=== PATIENT | male | born 1950 | race American Indian/Alaskan Native ===

== ENCOUNTER 2017-12-24 14:41 | Emergency (ER) | payer OTHER, MEDICARE ==
[2017-12-24 15:09] VITALS: BP 196/87
--- NOTE | 2017-12-24 17:32 | Emergency Department Report ---
ED ENT HPI - General Chief complaint: Earache Stated complaint: CANT HEAR Time Seen by Provider: 12/24/17 17:14 Source: patient Mode of arrival: Ambulatory Limitations: No Limitations - History of Present Illness Initial comments: pt has cc of b/l decreased hearing. pt has no visual or speech or gait disturbances. Pt has left ear with more decreased hearing, and " they feel clogged" pt denies h/a and neck pain. Pt drove here. MD complaint: ear pain -: Gradual Location: R ear, L ear Severity: mild Consistency: constant Improves with: pressure, other (decrease in hearing) Context-Epistaxis: other (anticoagulant use) Associated Symptoms: tinnitus, hearing loss. denies: fever, cough, gum swelling , toothache, pain with swallowing, sore throat, discharge from ear, rhinorrhea - Related Data Home Medications Medication Instructions Recorded Confirmed Last Taken Amlodipine-Atorvast 2.5-10 mg 5 - 10 mg PO HS 09/10/17 09/10/17 09/09/17 Apixaban [Eliquis] 2.5 mg PO BID 09/10/17 09/10/17 09/09/17 Aspirin [Aspirin BABY CHEW TAB] 81 mg PO QDAY 09/10/17 09/10/17 09/09/17 Insulin Glargine,Hum.rec.anlog See Protocol SQ HS PRN 09/10/17 09/10/17 09/09/17 [Lantus Solostar] Previous Rx's Medication Instructions Recorded Last Taken Type ALPRAZolam [Xanax TAB] 0.25 mg PO BID PRN #10 tab 09/16/17 Unknown Rx AtorvaSTATin [Lipitor] 40 mg PO QHS #30 tablet 09/16/17 Unknown Rx Carvedilol [Coreg] 12.5 mg PO BID #60 tablet 09/16/17 Unknown Rx ISOSORBIDE MONOnitrate [Imdur ER] 120 mg PO QDAY #30 tablet 09/16/17 Unknown Rx Spironolactone [Aldactone] 25 mg PO QDAY #30 tablet 09/16/17 Unknown Rx amLODIPine [Norvasc] 5 mg PO QDAY #30 tablet 09/16/17 Unknown Rx hydrALAZINE [Apresoline TAB] 100 mg PO Q8HR 30 Days tablet 09/16/17 Unknown Rx Cefdinir 300 mg PO BID 7 Days #14 capsule 12/24/17 Unknown Rx Cipro/Dexameth 0.3/0.1% [Ciprodex 4 drops OT BID 7 Days #1 bottle 12/24/17 Unknown Rx OTIC] Allergies Allergy/AdvReac Type Severity Reaction Status Date / Time No Known Allergies Allergy Unverified 09/09/17 19:32 ED Dental HPI - General Chief complaint: Earache Stated complaint: CANT HEAR Time Seen by Provider: 12/24/17 17:14 Source: patient Mode of arrival: Ambulatory Limitations: No Limitations - History of Present Illness MD complaint: ear pain -: Gradual, days(s) (2) Quality: aching Consistency: constant - Related Data Home Medications Medication Instructions Recorded Confirmed Last Taken Amlodipine-Atorvast 2.5-10 mg 5 - 10 mg PO HS 09/10/17 09/10/17 09/09/17 Apixaban [Eliquis] 2.5 mg PO BID 09/10/17 09/10/17 09/09/17 Aspirin [Aspirin BABY CHEW TAB] 81 mg PO QDAY 09/10/17 09/10/17 09/09/17 Insulin Glargine,Hum.rec.anlog See Protocol SQ HS PRN 09/10/17 09/10/17 09/09/17 [Lantus Solostar] Previous Rx's Medication Instructions Recorded Last Taken Type ALPRAZolam [Xanax TAB] 0.25 mg PO BID PRN #10 tab 09/16/17 Unknown Rx AtorvaSTATin [Lipitor] 40 mg PO QHS #30 tablet 09/16/17 Unknown Rx Carvedilol [Coreg] 12.5 mg PO BID #60 tablet 09/16/17 Unknown Rx ISOSORBIDE MONOnitrate [Imdur ER] 120 mg PO QDAY #30 tablet 09/16/17 Unknown Rx Spironolactone [Aldactone] 25 mg PO QDAY #30 tablet 09/16/17 Unknown Rx amLODIPine [Norvasc] 5 mg PO QDAY #30 tablet 09/16/17 Unknown Rx hydrALAZINE [Apresoline TAB] 100 mg PO Q8HR 30 Days tablet 09/16/17 Unknown Rx Cefdinir 300 mg PO BID 7 Days #14 capsule 12/24/17 Unknown Rx Cipro/Dexameth 0.3/0.1% [Ciprodex 4 drops OT BID 7 Days #1 bottle 12/24/17 Unknown Rx OTIC] Allergies Allergy/AdvReac Type Severity Reaction Status Date / Time No Known Allergies Allergy Unverified 09/09/17 19:32 ED Review of Systems ROS: Stated complaint: CANT HEAR Other details as noted in HPI Constitutional: denies: chills, fever Eyes: denies: eye pain, eye discharge, vision change ENT: ear pain, hearing loss. denies: throat pain Respiratory: denies: cough, shortness of breath, wheezing Cardiovascular: denies: chest pain, palpitations Endocrine: no symptoms reported Gastrointestinal: denies: abdominal pain, nausea, diarrhea Genitourinary: denies: urgency, dysuria Musculoskeletal: denies: back pain, joint swelling, arthralgia Skin: denies: rash, lesions Neurological: denies: headache, weakness, paresthesias Psychiatric: denies: anxiety, depression Hematological/Lymphatic: denies: easy bleeding, easy bruising ED Past Medical Hx - Past Medical History Hx Hypertension: Yes Hx CVA: Yes Hx Heart Attack/AMI: Yes Hx Diabetes: Yes Hx Psychiatric Treatment: Yes (Anxiety) Additional medical history: afib - Surgical History Hx Coronary Stent: Yes - Social History Smoking Status: Never Smoker Substance Use Type: None - Medications Home Medications: Home Medications Medication Instructions Recorded Confirmed Last Taken Type Amlodipine-Atorvast 2.5-10 mg 5 - 10 mg PO HS 09/10/17 09/10/17 09/09/17 History Apixaban [Eliquis] 2.5 mg PO BID 09/10/17 09/10/17 09/09/17 History Aspirin [Aspirin BABY CHEW TAB] 81 mg PO QDAY 09/10/17 09/10/17 09/09/17 History Insulin Glargine,Hum.rec.anlog See Protocol SQ HS PRN 09/10/17 09/10/17 History [Lantus Solostar] ALPRAZolam [Xanax TAB] 0.25 mg PO BID PRN #10 tab 09/16/17 Unknown Rx AtorvaSTATin [Lipitor] 40 mg PO QHS #30 tablet 09/16/17 Unknown Rx Carvedilol [Coreg] 12.5 mg PO BID #60 tablet 09/16/17 Unknown Rx ISOSORBIDE MONOnitrate [Imdur ER] 120 mg PO QDAY #30 tablet 09/16/17 Unknown Rx Spironolactone [Aldactone] 25 mg PO QDAY #30 tablet 09/16/17 Unknown Rx amLODIPine [Norvasc] 5 mg PO QDAY #30 tablet 09/16/17 Unknown Rx hydrALAZINE [Apresoline TAB] 100 mg PO Q8HR 30 Days tablet 09/16/17 Unknown Rx Cefdinir 300 mg PO BID 7 Days #14 capsule 12/24/17 Unknown Rx Cipro/Dexameth 0.3/0.1% [Ciprodex 4 drops OT BID 7 Days #1 bottle 12/24/17 Unknown Rx OTIC] ED Physical Exam - General Limitations: No Limitations General appearance: alert, in no apparent distress - Head Head exam: Present: atraumatic, normocephalic - Eye Eye exam: Present: normal appearance, PERRL, EOMI. Absent: scleral icterus, nystagmus, periorbital swelling, periorbital tenderness Pupils: Present: normal accommodation - ENT ENT exam: Present: normal orophraynx, mucous membranes moist, other (left TM has decreased cone of light with erythema, some external canal sweklling, R tm has blunted cone of light, with slight canal swelling). Absent: TM's normal bilaterally - Neck Neck exam: Present: normal inspection - Respiratory Respiratory exam: Present: normal lung sounds bilaterally. Absent: respiratory distress - Cardiovascular Cardiovascular Exam: Present: regular rate, normal rhythm. Absent: systolic murmur, diastolic murmur, rubs, gallop - GI/Abdominal GI/Abdominal exam: Present: soft, normal bowel sounds - Rectal Rectal exam: Present: deferred - Extremities Exam Extremities exam: Present: normal inspection - Back Exam Back exam: Present: normal inspection - Neurological Exam Neurological exam: Present: alert, altered, oriented X3, CN II-XII intact, normal gait, motor sensory deficit, reflexes normal (nih=0). Absent: abnormal gait - Psychiatric Psychiatric exam: Present: normal affect, normal mood - Skin Skin exam: Present: warm, dry, intact, normal color. Absent: rash ED Course Vital Signs 12/24/17 15:05 Temperature 98.7 F Pulse Rate 69 Respiratory 16 Rate Blood Pressure 196/87 O2 Sat by Pulse 95 Oximetry ED Medical Decision Making - Lab Data Result diagrams: 12/24/17 18:26 - Radiology Data Radiology results: report reviewed (l and r maxillary sinusitis, no acute cva intracranial bleed, or brain mass, b/l opacification of mastoid air cells, and middle ear cavities with fluid levels in mastoid sinus b/l ) - Medical Decision Making pt given rochepin here, and rx for cefnidir. Pt agrees to see ent Critical Care Time: No Critical care attestation.: If time is entered above; I have spent that time in minutes in the direct care of this critically ill patient, excluding procedure time. ED Disposition Clinical Impression: Mastoid disorder Otitis media Qualifiers: Otitis media type: unspecified Laterality: bilateral Qualified Code(s): H66.93 - Otitis media, unspecified, bilateral Disposition: TO HOME OR SELFCARE Is pt being admited?: No Does the pt Need Aspirin: No Condition: Stable Additional Instructions: You must, without fail, arrange an evaluation with your primary doctor, and ear nose and throat doctor, and a neurologist . Visit your primary doctor on Tuesday. Prescriptions: Cefdinir 300 mg PO BID 7 Days #14 capsule Cipro/Dexameth 0.3/0.1% [Ciprodex OTIC] 4 drops OT BID 7 Days #1 bottle Referrals: LINCOLN JONES MD [Primary Care Provider] - 3-5 Days
--- NOTE | 2017-12-24 18:21 | Cat Scan Report ---
FINAL REPORT EXAM: CT HEAD/BRAIN WO CON HISTORY: acute eharing loss on anticoagulants TECHNIQUE: CT examination of the head without IV contrast PRIORS: None. FINDINGS: Moderate left and slight right maxillary sinus mucosal thickening. The other paranasal sinuses are clear. Multifocal air cell opacification in the mastoid sinus bilaterally with scattered fluid levels. Complete opacification of the middle ear cavity bilaterally. Atherosclerotic calcification in the basilar artery and both carotid siphons. Bone windows demonstrate no acute fracture. There is ventricular and sulcal prominence compatible with global cerebrocortical atrophy. The brain contains no mass, mass effect, hemorrhage, or acute infarct. There is no extra-axial intracranial bleed, brain bleed, or midline shift. IMPRESSION: No acute CVA, intracranial bleed, or brain mass Bilateral opacification of the mastoid air cells and middle ear cavities with fluid levels in the mastoid sinus bilaterally. This may reflect eustachian tube dysfunction. The differential includes bilateral acute otomastoiditis Cerebrovascular atherosclerosis
[2017-12-24 18:51] LABS: Basophils # (Auto) 0.1 K/mm3 (0.0-0.1); Basophils % (Auto) 0.7 % (0.0-1.8); Eosinophils # (Auto) 0.1 K/mm3 (0.0-0.4); Eosinophils % (Auto) 0.6 % (0.0-4.3); Hematocrit 31.1 % (35.5-45.6); Hemoglobin 10.1 gm/dl (11.8-15.2); Lymphocytes # (Auto) 1.6 K/mm3 (1.2-5.4); Lymphocytes % (Auto) 11.2 % (13.4-35.0); Mean Corpuscular HGB Conc 32 % (32-34); Mean Corpuscular Volume 73 fl (84-94); Monocytes # (Auto) 1.1 K/mm3 (0.0-0.8); Monocytes % (Auto) 7.8 % (0.0-7.3); Platelet Count 518 K/mm3 (140-440); Red Blood Count 4.26 M/mm3 (3.65-5.03); Red Cell Distribution Width 16.5 % (13.2-15.2)
[2017-12-24] MEDS ORDERED: XYLOCAINE 1% MPF 5 mL INFILTRATI ONE (19:00)
[2017-12-24] MEDS ORDERED: ROCEPHIN IM ONE (19:00)
[2017-12-24 19:04] LABS: Mean Corpuscular Hemoglobin 24 pg (28-32)
[2017-12-24 19:07] LABS: Albumin 3.7 g/dL (3.9-5); Calcium 9.1 mg/dL (8.4-10.2)
== END 2017-12-24 19:50 | disposition home or self-care (01) ==
LOC: ED 14:41
DX: H70.93 Unspecified mastoiditis, bilateral (principal); I10 Essential (primary) hypertension; E11.9 Type 2 diabetes mellitus without complications; F41.9 Anxiety disorder, unspecified; I48.91 Unspecified atrial fibrillation; Z95.1 Presence of aortocoronary bypass graft; Z79.82 Long term (current) use of aspirin; Z79.4 Long term (current) use of insulin
CPT/HCPCS: 36415; 70450; 80053; 85025; 96372; 99284; J0696

== ENCOUNTER 2018-01-30 17:19 | Inpatient (IN) | payer OTHER, MEDICARE ==
[2018-01-30 18:23] LABS: Calcium 8.7 mg/dL (8.4-10.2)
--- NOTE | 2018-01-30 18:24 | Emergency Department Report ---
ED Shortness of Breath HPI - General Chief Complaint: Dyspnea/Respdistress Stated Complaint: CHF/COURTNEY Time Seen by Provider: 01/30/18 18:23 Source: patient, EMS Mode of arrival: Stretcher Limitations: No Limitations - History of Present Illness Initial Comments: Patient states he has been having shortness of breath for the past few days. When EMS picked him up he was severely short of breath with his O2 sat in the 80 's. He was given breathing treatment, aspirin 325 mg and nitroglycerin sublingual by EMS prior to arrival in the emergency room. MD Complaint: shortness of breath -: Gradual Severity: severe Pain Scale: 9 Consistency: constant Improves With: nothing Worsens With: nothing Known History Of: congestive heart failure Treatments Prior to Arrival: bronchodilator, asprin, nitroglycerin, diuretics - Related Data Home Oxygen Therapy: No Home Medications Medication Instructions Recorded Confirmed Last Taken Apixaban [Eliquis] 5 mg PO BID 09/10/17 01/30/18 09/09/17 Aspirin [Aspirin BABY CHEW TAB] 81 mg PO QDAY 09/10/17 01/30/18 09/09/17 Insulin Glargine,Hum.rec.anlog See Protocol SQ HS PRN 09/10/17 01/30/18 09/09/17 [Lantus Solostar] Cholecalciferol Vit D3 [Vitamin D3] 1,000 unit PO QDAY 01/30/18 01/30/18 Unknown Clopidogrel [Plavix] 75 mg PO QDAY 01/30/18 01/30/18 Unknown Torsemide [Demadex] 10 mg PO QDAY 01/30/18 01/30/18 Unknown Previous Rx's Medication Instructions Recorded Last Taken Type ALPRAZolam [Xanax TAB] 0.25 mg PO BID PRN #10 tab 09/16/17 Unknown Rx AtorvaSTATin [Lipitor] 40 mg PO QHS #30 tablet 09/16/17 Unknown Rx Carvedilol [Coreg] 12.5 mg PO BID #60 tablet 09/16/17 Unknown Rx ISOSORBIDE MONOnitrate [Imdur ER] 120 mg PO QDAY #30 tablet 09/16/17 Unknown Rx Spironolactone [Aldactone] 25 mg PO QDAY #30 tablet 09/16/17 Unknown Rx amLODIPine [Norvasc] 5 mg PO QDAY #30 tablet 09/16/17 Unknown Rx hydrALAZINE [Apresoline TAB] 100 mg PO Q8HR 30 Days tablet 09/16/17 Unknown Rx Allergies Allergy/AdvReac Type Severity Reaction Status Date / Time No Known Allergies Allergy Unverified 09/09/17 19:32 ED Review of Systems ROS: Stated complaint: CHF/COURTNEY Other details as noted in HPI Comment: All other systems reviewed and negative Constitutional: denies: chills, fever Eyes: denies: vision change ENT: denies: ear pain, dental pain Respiratory: orthopnea, shortness of breath, SOB with exertion, SOB at rest Cardiovascular: denies: chest pain, palpitations Endocrine: no symptoms reported Gastrointestinal: denies: abdominal pain, nausea, vomiting, diarrhea Genitourinary: denies: urgency, dysuria, frequency Musculoskeletal: denies: back pain, joint swelling Skin: denies: rash, change in color Neurological: denies: headache, weakness, numbness Psychiatric: denies: anxiety, depression Hematological/Lymphatic: denies: easy bleeding, easy bruising ED Past Medical Hx - Past Medical History Hx Hypertension: Yes Hx CVA: Yes Hx Heart Attack/AMI: Yes Hx Congestive Heart Failure: Yes Hx Diabetes: Yes Hx Psychiatric Treatment: Yes (Anxiety) Additional medical history: afib - Surgical History Hx Coronary Stent: Yes Hx Open Heart Surgery: Yes (CABG x3) - Social History Smoking Status: Never Smoker Substance Use Type: None - Medications Home Medications: Home Medications Medication Instructions Recorded Confirmed Last Taken Type Apixaban [Eliquis] 5 mg PO BID 09/10/17 01/30/18 09/09/17 History Aspirin [Aspirin BABY CHEW TAB] 81 mg PO QDAY 09/10/17 01/30/18 09/09/17 History Insulin Glargine,Hum.rec.anlog See Protocol SQ HS PRN 09/10/17 01/30/18 History [Lantus Solostar] ALPRAZolam [Xanax TAB] 0.25 mg PO BID PRN #10 tab 09/16/17 01/30/18 Unknown Rx AtorvaSTATin [Lipitor] 40 mg PO QHS #30 tablet 09/16/17 01/30/18 Unknown Rx Carvedilol [Coreg] 12.5 mg PO BID #60 tablet 09/16/17 01/30/18 Unknown Rx ISOSORBIDE MONOnitrate [Imdur ER] 120 mg PO QDAY #30 tablet 09/16/17 01/30/18 Unknown Rx Spironolactone [Aldactone] 25 mg PO QDAY #30 tablet 09/16/17 01/30/18 Unknown Rx amLODIPine [Norvasc] 5 mg PO QDAY #30 tablet 09/16/17 01/30/18 Unknown Rx hydrALAZINE [Apresoline TAB] 100 mg PO Q8HR 30 Days tablet 09/16/17 01/30/18 Unknown Rx Cholecalciferol Vit D3 [Vitamin D3] 1,000 unit PO QDAY 01/30/18 01/30/18 Unknown History Clopidogrel [Plavix] 75 mg PO QDAY 01/30/18 01/30/18 Unknown History Torsemide [Demadex] 10 mg PO QDAY 01/30/18 01/30/18 Unknown History ED Physical Exam - General Limitations: No Limitations General appearance: alert, in distress - Head Head exam: Present: atraumatic, normocephalic, normal inspection - Eye Eye exam: Present: normal appearance, PERRL, EOMI Pupils: Present: normal accommodation - ENT ENT exam: Present: normal exam, normal orophraynx, mucous membranes moist - Neck Neck exam: Present: normal inspection, tenderness, full ROM. Absent: meningismus - Respiratory Respiratory exam: Present: respiratory distress, rales, rhonchi, decreased breath sounds - Cardiovascular Cardiovascular Exam: Present: regular rate, normal rhythm, S3 - GI/Abdominal GI/Abdominal exam: Present: soft. Absent: distended, tenderness, guarding, rebound, normal bowel sounds - Extremities Exam Extremities exam: Present: normal inspection, full ROM, normal capillary refill , pedal edema - Back Exam Back exam: Present: normal inspection, full ROM. Absent: tenderness - Neurological Exam Neurological exam: Present: alert, oriented X3, CN II-XII intact - Psychiatric Psychiatric exam: Present: normal affect, normal mood - Skin Skin exam: Present: warm, dry, intact. Absent: rash ED Course Vital Signs 01/30/18 01/30/18 01/30/18 17:23 17:30 17:57 Temperature Pulse Rate 83 80 Respiratory 28 H 19 20 Rate Blood Pressure 181/102 215/100 O2 Sat by Pulse 97 97 96 Oximetry 01/30/18 01/30/18 01/30/18 18:01 18:30 19:00 Temperature Pulse Rate 77 78 77 Respiratory 19 20 18 Rate Blood Pressure 198/91 216/105 227/120 O2 Sat by Pulse 96 98 96 Oximetry 01/30/18 01/30/18 01/30/18 19:01 19:30 20:16 Temperature Pulse Rate 78 78 83 Respiratory 16 24 Rate Blood Pressure 227/120 217/117 194/81 O2 Sat by Pulse 96 96 Oximetry 01/30/18 01/30/18 01/30/18 20:45 20:53 21:01 Temperature Pulse Rate 76 75 75 Respiratory 27 H 28 H 24 Rate Blood Pressure 192/105 192/105 185/94 O2 Sat by Pulse 97 97 96 Oximetry 01/30/18 01/30/18 01/30/18 21:05 21:19 21:30 Temperature 98.3 F Pulse Rate 81 Respiratory 17 18 Rate Blood Pressure 185/94 219/103 O2 Sat by Pulse 97 Oximetry - Reevaluation(s) Reevaluation #1: 01/31/18 02:50 I discussed patient with the hospitalist on-call Dr. Murphy. He will admit patient to the hospital for further evaluation and management. ED Medical Decision Making - Lab Data Result diagrams: 01/30/18 19:18 01/30/18 17:52 - Radiology Data Radiology results: report reviewed, image reviewed - Medical Decision Making Acute exacerbation of congestive heart failure. Shortness of breath. Critical Care Time: Yes Critical care time in (mins) excluding proc time.: 45 Critical care attestation.: If time is entered above; I have spent that time in minutes in the direct care of this critically ill patient, excluding procedure time. ED Disposition Clinical Impression: Shortness of breath on exertion Acute exacerbation of CHF (congestive heart failure) Qualifiers: Heart failure type: unspecified Qualified Code(s): I50.9 - Heart failure, unspecified Hypertension Qualifiers: Hypertension type: unspecified Qualified Code(s): I10 - Essential (primary) hypertension Disposition: OP ADMIT IP TO THIS HOSP Is pt being admited?: Yes Does the pt Need Aspirin: Yes Condition: Stable
[2018-01-30] MEDS ORDERED: LASIX ONE (18:37)
[2018-01-30] MEDS ORDERED: LASIX IV ONE (18:38)
[2018-01-30] MEDS ORDERED: NITRO-BID 2% TP ONE (18:40)
[2018-01-30 18:51] LABS: Chol/HDL Ratio 1.93 %
--- NOTE | 2018-01-30 19:20 | History and Physical Report ---
History of Present Illness Chief complaint: Im swollen, and im short of breath History of present illness: 67 YO Male with DM,HTN, CVA, OR, CHF, DM,Atrial Fib, CAD S/P CABG, Anxiety presents to ED for evaluation. Pt states that he has experienced shortness of breath and leg swelling for the past 2 weeks with worsening symptoms over the past 3 days. Pt acknowledges orthopnea, PND, Decreased exercise tolerance, subjective weight gain as well as dietary noncompliance. Pt denies fever, chills , CP, Palpitations, Syncope, BRBPR, medication noncompliance, trauma, productive cough, or recent ill contacts. Pt seen and evaluated in ED and found to have CHF Decompensation complicated by Acute Respiratory Failure, and Acute Renal Failure. Pt admitted to telemetry and treated IAW CHF protocol. Cardiology consulted in ED. Past History Past Medical History: atrial fib, CAD, diabetes, heart failure, hypertension, hyperlipidemia Past Surgical History: CABG Social history: single. denies: smoking, alcohol abuse, prescription drug abuse Family history: hypertension Medications and Allergies Allergies Allergy/AdvReac Type Severity Reaction Status Date / Time No Known Allergies Allergy Unverified 09/09/17 19:32 Home Medications Medication Instructions Recorded Confirmed Last Taken Type Apixaban [Eliquis] 5 mg PO BID 09/10/17 01/30/18 09/09/17 History Aspirin [Aspirin BABY CHEW TAB] 81 mg PO QDAY 09/10/17 01/30/18 09/09/17 History Insulin Glargine,Hum.rec.anlog See Protocol SQ HS PRN 09/10/17 01/30/18 History [Lantus Solostar] ALPRAZolam [Xanax TAB] 0.25 mg PO BID PRN #10 tab 09/16/17 01/30/18 Unknown Rx AtorvaSTATin [Lipitor] 40 mg PO QHS #30 tablet 09/16/17 01/30/18 Unknown Rx Carvedilol [Coreg] 12.5 mg PO BID #60 tablet 09/16/17 01/30/18 Unknown Rx ISOSORBIDE MONOnitrate [Imdur ER] 120 mg PO QDAY #30 tablet 09/16/17 01/30/18 Unknown Rx Spironolactone [Aldactone] 25 mg PO QDAY #30 tablet 09/16/17 01/30/18 Unknown Rx amLODIPine [Norvasc] 5 mg PO QDAY #30 tablet 09/16/17 01/30/18 Unknown Rx hydrALAZINE [Apresoline TAB] 100 mg PO Q8HR 30 Days tablet 09/16/17 01/30/18 Unknown Rx Cholecalciferol Vit D3 [Vitamin D3] 1,000 unit PO QDAY 01/30/18 01/30/18 Unknown History Clopidogrel [Plavix] 75 mg PO QDAY 01/30/18 01/30/18 Unknown History Torsemide [Demadex] 10 mg PO QDAY 01/30/18 01/30/18 Unknown History Review of Systems Constitutional: no weight loss, no weight gain, no fever, no chills Ears, nose, mouth and throat: no ear pain, no ear discharge, no tinnitis, no decreased hearing, no nose pain Cardiovascular: orthopnea, shortness of breath, dyspnea on exertion, paroxysmal nocturnal dyspnea, decreased exercise tolerance, no chest pain, no palpitations , no rapid/irregular heart beat, no edema, no syncope Respiratory: no cough, no cough with sputum, no excessive sputum, no hemoptysis Gastrointestinal: no abdominal pain, no nausea, no vomiting, no diarrhea, no constipation, no change in bowel habits, no hematemesis Genitourinary Male: no dysuria, no hematuria, no flank pain, no discharge, no urinary frequency, no urinary hesitancy, no nocturia, no incontinence, no erectile dysfunction Rectal: no pain, no incontinence, no bleeding Musculoskeletal: no neck stiffness, no neck pain, no shooting arm pain, no arm numbness/tingling, no low back pain, no shooting leg pain Integumentary: no rash, no pruritis, no redness, no sores, no wounds, no jaundice, no boils Neurological: no head injury, no transient paralysis, no paralysis, no weakness , no parathesias, no numbness, no tingling, no seizures Psychiatric: no anxiety, no memory loss, no change in sleep habits, no sleep disturbances, no insomnia, no hypersomnia, no change in appetite Endocrine: no cold intolerance, no heat intolerance, no polyphagia, no excessive thirst, no polydipsia, no polyuria, no nocturia, no excessive sweating Hematologic/Lymphatic: no easy bruising, no easy bleeding, no lymphadenopathy, no lymphedema Allergic/Immunologic: no urticaria, no allergic rhinitis, no wheezing, no persistent infections, no anaphylaxis Exam - Constitutional Vitals: Temp Pulse Resp BP Pulse Ox 78 20 227/120 96 01/30/18 19:01 01/30/18 17:57 01/30/18 19:01 01/30/18 17:57 General appearance: Present: mild distress - EENT Eyes: Present: PERRL ENT: hearing intact, clear oral mucosa - Neck Neck: Present: supple, masses or JVD - Respiratory Respiratory effort: labored Respiratory: bilateral: diminished, rhonchi - Cardiovascular Heart Sounds: Present: S1 & S2. Absent: rub, click - Extremities Extremity abnormal: edema Peripheral Pulses: within normal limits - Abdominal General gastrointestinal: Present: soft, non-tender, non-distended, normal bowel sounds Male genitourinary: Present: normal - Integumentary Integumentary: Present: clear, warm, dry - Musculoskeletal Musculoskeletal: gait normal, strength equal bilaterally - Psychiatric Psychiatric: appropriate mood/affect, intact judgment & insight - Neurologic Neurologic: CNII-XII intact, moves all extremities Results - Labs CBC & Chem 7: 01/30/18 19:18 01/30/18 17:52 Labs: Abnormal lab results 01/30/18 Range/Units 17:52 BUN 38 H (9-20) mg/dL Creatinine 2.8 H (0.8-1.5) mg/dL Glucose 145 H (75-100) mg/dL Troponin T 0.073 H (0.00-0.029) ng/mL HDL Cholesterol 77 H (40-59) mg/dL Assessment and Plan - Patient Problems (1) Atrial fibrillation Current Visit: Yes Status: Acute Qualifiers: Atrial fibrillation type: persistent Qualified Code(s): I48.1 - Persistent atrial fibrillation Plan to address problem: Therapeutic anticoagulation, admit to telemetry, rate currently controlled. (2) Respiratory failure Current Visit: Yes Status: Acute Qualifiers: Chronicity: acute Respiratory failure complication: hypoxia Qualified Code(s): J96.01 - Acute respiratory failure with hypoxia Plan to address problem: supplemental oxygen, nebulizer therapy, monitor uop q shift, Chest x ray, NIPPV as clinically indicated. (3) Acute exacerbation of CHF (congestive heart failure) Current Visit: No Status: Acute Qualifiers: Heart failure type: unspecified Qualified Code(s): I50.9 - Heart failure, unspecified Plan to address problem: Admit to telemetry, diureisis, monitor uop q shift, strict I/O, daily weight, Chest X ray, supplemental oxygen, nebulizer therapy, pulse oximetry. (4) Diabetes Current Visit: Yes Status: Acute Plan to address problem: ADA diet, insulin, accu check (5) Accelerated hypertension Current Visit: Yes Status: Acute Plan to address problem: monitor bp q shift, resume prehospital medication, IV hydralazine prn (6) DVT prophylaxis Current Visit: Yes Status: Acute Plan to address problem: SCD to BLE while in bed
[2018-01-30] MEDS ORDERED: SODIUM CHLORIDE FLUSH SYRINGE 10 ML IV PRN (19:48)
[2018-01-30] MEDS ORDERED: PROVENTIL IH PRN (19:48)
[2018-01-30] MEDS ORDERED: ZOFRAN IV PRN (19:48)
[2018-01-30 20:00] LABS: Basophils # (Auto) 0.1 K/mm3 (0.0-0.1); Basophils % (Auto) 0.5 % (0.0-1.8); Eosinophils % (Auto) 0.2 % (0.0-4.3); Hematocrit 33.5 % (35.5-45.6); Hemoglobin 10.7 gm/dl (11.8-15.2); Lymphocytes # (Auto) 0.6 K/mm3 (1.2-5.4); Lymphocytes % (Auto) 6.1 % (13.4-35.0); Mean Corpuscular HGB Conc 32 % (32-34); Mean Corpuscular Volume 81 fl (84-94); Monocytes # (Auto) 0.8 K/mm3 (0.0-0.8); Monocytes % (Auto) 7.6 % (0.0-7.3); Platelet Count 351 K/mm3 (140-440); Red Blood Count 4.13 M/mm3 (3.65-5.03)
[2018-01-30 20:02] LABS: Mean Corpuscular Hemoglobin 26 pg (28-32); Red Cell Distribution Width 21.8 % (13.2-15.2)
--- NOTE | 2018-01-30 20:48 | XRay Report ---
FINAL REPORT PROCEDURE: XR CHEST 1V AP TECHNIQUE: Chest radiograph anteroposterior view. CPT 08216 HISTORY: Shortness of breath COMPARISON: 09/09/2017 FINDINGS: Heart: Prominent cardiac silhouette Mediastinum/Vessels: Prominent central vessels. Lungs/Pleural space: There are extensive bilateral patchy airspace opacities, which may be related to edema. There are likely bilateral pleural effusions. No pneumothorax is seen. Bony thorax: No acute osseous abnormality. Life support devices: None. IMPRESSION: Findings are compatible with congestive heart failure with pulmonary edema. Correlate clinically to exclude underlying infectious process
[2018-01-30] MEDS: APRESOLINE IV PRN (21:58)
[2018-01-30] MEDS: APRESOLINE PO SCH (21:58)
[2018-01-30] MEDS: ELIQUIS PO SCH (22:00)
[2018-01-30] MEDS: COREG PO SCH (22:00)
[2018-01-30] MEDS: SODIUM CHLORIDE FLUSH SYRINGE 10 ML IV SCH (22:01)
[2018-01-31] MEDS: APRESOLINE IV PRN (01:59)
[2018-01-31] MEDS: LASIX IV SCH ×2 (05:15→18:15)
[2018-01-31] MEDS: APRESOLINE PO SCH ×3 (05:15→22:55)
[2018-01-31 06:25] LABS: Calcium 8.6 mg/dL (8.4-10.2)
[2018-01-31] MEDS: DEMADEX PO SCH (09:41)
[2018-01-31] MEDS: NORVASC PO SCH (09:41)
[2018-01-31] MEDS: ALDACTONE PO SCH (09:41)
[2018-01-31] MEDS: ELIQUIS PO SCH ×2 (09:42→22:55)
[2018-01-31] MEDS: PLAVIX PO SCH (09:42)
[2018-01-31] MEDS: VITAMIN D3 PO SCH (09:42)
[2018-01-31] MEDS: IMDUR PO SCH (09:42)
[2018-01-31] MEDS: BABY ASPIRIN PO SCH (09:42)
[2018-01-31] MEDS: SODIUM CHLORIDE FLUSH SYRINGE 10 ML IV SCH ×2 (09:43→22:55)
[2018-01-31] MEDS: HumaLOG SUB-Q SCH ×4 (09:43→22:55)
[2018-01-31] MEDS: COREG PO SCH ×2 (09:43→22:55)
--- NOTE | 2018-01-31 12:24 | Consultation ---
History of Present Illness Consult date: 01/31/18 Requesting physician: EDMAR SALAS Consult reason: congestive heart failure History of present illness: Pt is a 67 YO male with a past medical history significant for CAD s/p CABG in 2010, paroxysmal atrial fibrillation, anticoagulated with Eliquis, diastolic heart failure, HTN, DM, CKD, HLP, PVD. He is followed in our office by Dr. Edwards. He presented with complaints of SOB since yesterday and BLE swelling for the past 2 weeks. He reports that he was outside yesterday when he developed SOB and thought that he got overheated and his neighbor called EMS. He denies any chest pain, palpitations, n/v, diaphoresis, dizziness or syncope. He reports compliance with his home medication regimen and diet. BP on arrival 215/100. CXR shows pulmonary edema. Pro-BNP 9307. C 01/2017 showed Left main patent LAD proximal 30% mid 100% patent MARTINEZ to diagonal with retrograde fill into small LAD. Ramus medium caliber vessel patent feeds to anterior lateral portion of the heart. Circumflex 100% weight OM1 50% RCA 100%. With SVG to PDA patent feeding the PDA and PLV. SVG to obtuse marginal was 100% EF 55% mild inferior apical hypokinesis. Echo done 08/2017 showed EF 55-60%, mod to severe LVH, restrictive diastolic filling pattern. Past History Past Medical History: atrial fib, CAD, diabetes, heart failure, hypertension, hyperlipidemia, other (CKD; PVD) Past Surgical History: CABG Social history: single. denies: smoking, alcohol abuse, prescription drug abuse Family history: hypertension Medications and Allergies Allergies Allergy/AdvReac Type Severity Reaction Status Date / Time No Known Allergies Allergy Unverified 09/09/17 19:32 Home Medications Medication Instructions Recorded Confirmed Last Taken Type Apixaban [Eliquis] 5 mg PO BID 09/10/17 01/30/18 09/09/17 History Aspirin [Aspirin BABY CHEW TAB] 81 mg PO QDAY 09/10/17 01/30/18 09/09/17 History Insulin Glargine,Hum.rec.anlog See Protocol SQ HS PRN 09/10/17 01/30/18 History [Lantus Solostar] ALPRAZolam [Xanax TAB] 0.25 mg PO BID PRN #10 tab 09/16/17 01/30/18 Unknown Rx AtorvaSTATin [Lipitor] 40 mg PO QHS #30 tablet 09/16/17 01/30/18 Unknown Rx Carvedilol [Coreg] 12.5 mg PO BID #60 tablet 09/16/17 01/30/18 Unknown Rx ISOSORBIDE MONOnitrate [Imdur ER] 120 mg PO QDAY #30 tablet 09/16/17 01/30/18 Unknown Rx Spironolactone [Aldactone] 25 mg PO QDAY #30 tablet 09/16/17 01/30/18 Unknown Rx amLODIPine [Norvasc] 5 mg PO QDAY #30 tablet 09/16/17 01/30/18 Unknown Rx hydrALAZINE [Apresoline TAB] 100 mg PO Q8HR 30 Days tablet 09/16/17 01/30/18 Unknown Rx Cholecalciferol Vit D3 [Vitamin D3] 1,000 unit PO QDAY 01/30/18 01/30/18 Unknown History Clopidogrel [Plavix] 75 mg PO QDAY 01/30/18 01/30/18 Unknown History Torsemide [Demadex] 10 mg PO QDAY 01/30/18 01/30/18 Unknown History Active Meds: Active Medications Acetaminophen (Tylenol) 650 mg PO Q4H PRN PRN Reason: Pain MILD(1-3)/Fever >100.5/[place] Albuterol (Proventil) 2.5 mg IH Q4HRT PRN PRN Reason: Shortness Of Breath Alprazolam (Xanax) 0.25 mg PO BID PRN PRN Reason: Anxiety Amlodipine Besylate (Norvasc) 5 mg PO QDAY [facility] Last Admin: 01/31/18 09:41 Dose: 5 mg Apixaban (Eliquis) 5 mg PO BID [facility]; Protocol Last Admin: 01/31/18 09:42 Dose: 5 mg Aspirin (Baby Aspirin) 81 mg PO QDAY [facility] Last Admin: 01/31/18 09:42 Dose: 81 mg Atorvastatin Calcium (Lipitor) 40 mg PO QHS [facility] Last Admin: 01/30/18 21:59 Dose: 40 mg Carvedilol (Coreg) 12.5 mg PO BID [facility] Last Admin: 01/31/18 09:43 Dose: 12.5 mg Cholecalciferol (Vitamin D3) 1,000 unit PO QDAY [facility] Last Admin: 01/31/18 09:42 Dose: 1,000 unit Clopidogrel Bisulfate (Plavix) 75 mg PO QDAY [facility] Last Admin: 01/31/18 09:42 Dose: 75 mg Furosemide (Lasix) 40 mg IV BID@0600,1800 [facility] Last Admin: 01/31/18 05:15 Dose: 40 mg Hydralazine HCl (Apresoline) 100 mg PO Q8HR [facility] Last Admin: 01/31/18 05:15 Dose: 100 mg Hydralazine HCl (Apresoline) 20 mg IV Q4HR PRN PRN Reason: Hypertension Last Admin: 01/31/18 01:59 Dose: 20 mg Insulin Human Lispro (Humalog) 0 unit SUB-Q [facility]; Protocol Last Admin: 01/31/18 09:43 Dose: Not Given Isosorbide Mononitrate (Imdur) 120 mg PO QDAY [facility] Last Admin: 01/31/18 09:42 Dose: 120 mg Ondansetron HCl (Zofran) 4 mg IV Q8H PRN PRN Reason: Nausea And Vomiting Sodium Chloride (Sodium Chloride Flush Syringe 10 Ml) 10 ml IV BID [facility] Last Admin: 01/31/18 09:43 Dose: 10 ml Sodium Chloride (Sodium Chloride Flush Syringe 10 Ml) 10 ml IV PRN PRN PRN Reason: LINE FLUSH Spironolactone (Aldactone) 25 mg PO QDAY [facility] Last Admin: 01/31/18 09:41 Dose: 25 mg Torsemide (Demadex) 10 mg PO QDAY [facility] Last Admin: 01/31/18 09:41 Dose: 10 mg Review of Systems Constitutional: no fever, no chills, no sweats Ears, nose, mouth and throat: no ear pain, no nose pain, no sinus pressure, no sinus pain Cardiovascular: edema, shortness of breath, dyspnea on exertion, high blood pressure, leg edema, no chest pain, no palpitations, no rapid/irregular heart beat, no syncope, no lightheadedness Respiratory: shortness of breath, dyspnea on exertion, no cough, no congestion, no wheezing, no pain on inspiration Gastrointestinal: no abdominal pain, no nausea, no vomiting, no diarrhea, no constipation, no change in bowel habits Genitourinary Male: no dysuria, no hematuria, no flank pain, no discharge, no urinary frequency, no urinary hesitancy Musculoskeletal: no neck stiffness, no neck pain, no shooting arm pain, no arm numbness/tingling, no low back pain, no shooting leg pain, no leg numbness/ tingling, no redness of joints Integumentary: no rash, no pruritis, no redness, no sores, no wounds Neurological: no head injury, no paralysis, no weakness, no parathesias, no numbness, no tingling, no seizures, no syncope Psychiatric: no anxiety Endocrine: no cold intolerance, no heat intolerance Hematologic/Lymphatic: no easy bruising, no easy bleeding, no lymphadenopathy Allergic/Immunologic: no urticaria, no wheezing, no persistent infections Physical Examination Vital Signs Pulse Resp BP Pulse Ox 83 28 H 181/102 97 01/30/18 17:23 01/30/18 17:23 01/30/18 17:23 01/30/18 17:23 General appearance: no acute distress HEENT: Positive: PERRL, Normocephaly, Mucus Membranes Moist Neck: Positive: neck supple, trachea midline Cardiac: Positive: Reg Rate and Rhythm, S1/S2, Systolic Murmur Lungs: Positive: Decreased Breath Sounds, Rales (bibasilar) Neuro: Positive: Grossly Intact Abdomen: Positive: Soft. Negative: Tender Skin: Positive: Clear. Negative: Rash, Wound Musculoskeletal: No Pain, Normal Range of Motion Extremities: Present: +2 Edema (BLE) Results 01/30/18 19:18 01/31/18 05:07 Lipids 01/30/18 Range/Units 17:52 Triglycerides 70 (2-149) mg/dL Cholesterol 149 (50-199) mg/dL HDL Cholesterol 77 H (40-59) mg/dL Cholesterol/HDL Ratio 1.93 % CBC 01/30/18 Range/Units 19:18 WBC 10.2 (4.5-11.0) K/mm3 RBC 4.13 (3.65-5.03) M/mm3 Hgb 10.7 L (11.8-15.2) gm/dl Hct 33.5 L (35.5-45.6) % Plt Count 351 (140-440) K/mm3 Lymph # 0.6 L (1.2-5.4) K/mm3 [place] # 0.8 (0.0-0.8) K/mm3 Eos # 0.0 (0.0-0.4) K/mm3 Baso # 0.1 (0.0-0.1) K/mm3 Comprehensive Metabolic Panel 01/30/18 01/31/18 Range/Units 17:52 05:07 Sodium 139 139 (137-145) mmol/L Potassium 4.0 3.6 (3.6-5.0) mmol/L Chloride 103.3 102.6 (98-107) mmol/L Carbon Dioxide 23 23 (22-30) mmol/L BUN 38 H 38 H (9-20) mg/dL Creatinine 2.8 H 2.8 H (0.8-1.5) mg/dL Glucose 145 H 112 H (75-100) mg/dL Calcium 8.7 8.6 (8.4-10.2) mg/dL - Imaging and Cardiology Echo: report reviewed ( 08/2017 showed EF 55-60%, mod to severe LVH, restrictive diastolic filling pattern. ) Cardiac cath: report reviewed (01/2017 showed Left main patent LAD proximal 30% mid 100% patent MARTINEZ to diagonal with retrograde fill into small LAD. Ramus medium caliber vessel patent feeds to anterior lateral portion of the heart. Circumflex 100% weight OM1 50% RCA 100%. With SVG to PDA patent feeding the PDA and PLV. SVG to obtuse marginal was 100% EF 55% mild inferior apical hypokinesis.) EKG: report reviewed, image reviewed EKG interpretations - Telemetry EKG Rhythm: Sinus Rhythm - EKG Sinus rhythms and dysrhythmias: sinus rhythm Chamber hypertrophy or enlargement: left ventricular hypertro Assessment and Plan Assessment: Acute diastolic heart failure / pulmonary edema Hypertensive urgency CAD s/p CABG in 2010 Paroxysmal atrial fibrillation, anticoagulated with Eliquis DM CKD HLP PVD Plan: Agree with present cardiac regimen. Monitor renal indices closely. Assessment and plan reviewed with pt at bedside. The patient has been seen in conjunction with Dr. Otoole who agrees with the assessment and plan of care.
--- NOTE | 2018-01-31 17:36 | Progress Note ---
Assessment and Plan Assessment and plan: Acute on chronic diastolic CHF. lasix iv, Coreg Cardiology following CAD s/p CABG. On Aspirin, Plavix, Coreg, Lipitor, Imdur Diabetes mellitus type 2. Fingerstick qac and HS paroxysmal atrial fib. On Eliquis for anticoagulation Hypertensive urgency. BP improving Hyperlipidemia Chronic kidney disease. recheck Cr in am may consult Nephrology if Cr worsens DVT prophylaxis. On Eliquis Full code status Cramping of hand. Will check Phos, Mag History Interval history: Shortness of breath Swollen legs No chest pain Hospitalist Physical - Physical exam Narrative exam: General: Not in acute distress, Obese, HEENT:Normocephalic, atraumatic Neck:supple,no JVD Lungs: Clear to auscultation bilaterally, no crackles, no wheeze Heart:S1 and S2 regular, no murmurs, rubs or gallop Abd: soft, non tender, non distended, normal bowel sounds Ext: Bilateral lower ext edema, no clubbing, no cyanosis Neuro: AAO x 3, moves all extremities. - Constitutional Vitals: Temp Pulse Resp BP Pulse Ox 97.8 F 58 L 20 138/63 97 01/31/18 15:58 01/31/18 15:58 01/31/18 15:58 01/31/18 15:58 01/31/18 15:58 General appearance: Present: no acute distress Results - Labs CBC & Chem 7: 01/30/18 19:18 01/31/18 05:07 Labs: Laboratory Last Values WBC 10.2 K/mm3 (4.5-11.0) 01/30/18 19:18 RBC 4.13 M/mm3 (3.65-5.03) 01/30/18 19:18 Hgb 10.7 gm/dl (11.8-15.2) L 01/30/18 19:18 Hct 33.5 % (35.5-45.6) L 01/30/18 19:18 MCV 81 fl (84-94) L 01/30/18 19:18 MCH 26 pg (28-32) L 01/30/18 19:18 MCHC 32 % (32-34) 01/30/18 19:18 RDW 21.8 % (13.2-15.2) H 01/30/18 19:18 Plt Count 351 K/mm3 (140-440) 01/30/18 19:18 Lymph % (Auto) 6.1 % (13.4-35.0) L 01/30/18 19:18 [place] % (Auto) 7.6 % (0.0-7.3) H 01/30/18 19:18 Eos % (Auto) 0.2 % (0.0-4.3) 01/30/18 19:18 Baso % (Auto) 0.5 % (0.0-1.8) 01/30/18 19:18 Lymph # 0.6 K/mm3 (1.2-5.4) L 01/30/18 19:18 [place] # 0.8 K/mm3 (0.0-0.8) 01/30/18 19:18 Eos # 0.0 K/mm3 (0.0-0.4) 01/30/18 19:18 Baso # 0.1 K/mm3 (0.0-0.1) 01/30/18 19:18 Seg Neutrophils % 85.6 % (40.0-70.0) H 01/30/18 19:18 Seg Neutrophils # 8.7 K/mm3 (1.8-7.7) H 01/30/18 19:18 Sodium 139 mmol/L (137-145) 01/31/18 05:07 Potassium 3.6 mmol/L (3.6-5.0) 01/31/18 05:07 Chloride 102.6 mmol/L (98-107) 01/31/18 05:07 Carbon Dioxide 23 mmol/L (22-30) 01/31/18 05:07 Anion Gap 17 mmol/L 01/31/18 05:07 BUN 38 mg/dL (9-20) H 01/31/18 05:07 Creatinine 2.8 mg/dL (0.8-1.5) H 01/31/18 05:07 Estimated GFR 27 ml/min 01/31/18 05:07 BUN/Creatinine Ratio 14 % 01/31/18 05:07 Glucose 112 mg/dL (75-100) H 01/31/18 05:07 POC Glucose 160 (70-105) H 01/31/18 17:27 Calcium 8.6 mg/dL (8.4-10.2) 01/31/18 05:07 Phosphorus 3.60 mg/dL (2.5-4.5) 01/31/18 05:07 Magnesium 1.90 mg/dL (1.7-2.3) 01/31/18 05:07 Troponin T 0.073 ng/mL (0.00-0.029) H 01/30/18 17:52 NT-Pro-B Natriuret Pep 9307 pg/mL (0-900) H 01/30/18 19:24 Triglycerides 70 mg/dL (2-149) 01/30/18 17:52 Cholesterol 149 mg/dL (50-199) 01/30/18 17:52 LDL Cholesterol Direct 71 mg/dL (50-130) 01/30/18 17:52 HDL Cholesterol 77 mg/dL (40-59) H 01/30/18 17:52 Cholesterol/HDL Ratio 1.93 % 01/30/18 17:52
[2018-02-01] MEDS: APRESOLINE PO SCH ×3 (06:19→21:42)
[2018-02-01] MEDS: LASIX IV SCH ×2 (06:20→19:10)
[2018-02-01] MEDS: HumaLOG SUB-Q SCH ×4 (07:38→22:00)
[2018-02-01 08:18] LABS: Calcium 8.6 mg/dL (8.4-10.2)
--- NOTE | 2018-02-01 10:27 | Consultation ---
History of Present Illness - History of Present Illness Thank you for the consultation patient was evaluated today. Source of information; patient himself old records were also reviewed History of presenting illness; Patient is a 67-year-old male who has been admitted here since January 30, 2018. He has been admitted here with shortness of breath drops in oxygen saturation down to 80% with admission creatinine of 2.8 which is currently at 3.3. Patient is currently being followed by Dr. eZferino Castro for chronic kidney disease but does not remember his baseline creatinine but was apparently seen a month ago by him and is being followed. Patient has been told to be nearing dialysis. He does suffer from uncontrolled hypertension during this admission his blood pressure has been between 180-220 systolic. Patient has been diagnosed with acute diastolic heart failure with pulmonary edema hypertensive urgency. He also does have a history of underlying coronary artery disease status post coronary bypass graft and does suffer from paroxysmal atrial fibrillation and peripheral vascular disease. Symptomatically patient feels better after diuresis Past medical history significant for Chronic kidney disease Hypertension Diastolic heart failure Atrial fibrillation Chronic edema Poor dietary habits Coronary artery bypass graft coronary artery disease hyperlipidemia Current allergies: None Social history: Single no history of any alcohol drug tobacco use Family history: Positive for hypertension Review of systems positive for worsening edema and shortness of breath dyspnea on exertion All other review of systems were negative Labs and x-rays: Were reviewed from the current chart Physical examination General: No acute distress HEENT: Oral mucosa moist no pharyngeal erythema no pallor or icterus no uremic order Neck: Supple no evidence of any thyromegaly trachea midline no JVD Chest: bilateral basilar crackles Heart: Regular rate and rhythm S1-S2 heard no S3-S4 Abdomen: Soft nontender no renal bruit no CVA tenderness no suprapubic fullness no organomegaly Extremity:12 plus edema dry skin no peripheral cyanosis pulses palpable Neurological: Alert awake follows command grossly nonfocal examination Back: Nontender thoracolumbar spine Musculoskeletal: No joint effusion noted Skin: No petechial rash/noted Assessment and plan acute and chronic renal failure patient mostly appears to be prerenal admitted with uncontrolled hypertension congestive heart failure patient is currently being followed by Dr. Castro We'll patient came monitor renal function as his heart failure doesn't improve, and adjust diuretics as needed Congestive heart failure uncontrolled hypertension in a patient with history of coronary artery disease high likelihood of him having renovascular hypertension as there accelerated/uncontrolled hypertension multi-factorial mostly resulting from noncompliance? Compliance with medication? Renovascular hypertension ? Due to volume overload Patient was advised to make all the city diet and lifestyle changes for improvement in his health preservation of renal function and improvement in congestive heart failure I have educated him at length about the nature and severity of his renal dysfunction that he is also progressing in terms of worsening of his renal function and would need to follow up with Dr. Castro upon discharge His overall renal prognosis appears to be guarded to poor long-term Compliance appears to be doubtful Nature and severity of renal-related issues were discussed with patient, all questions were answered and simple Urdu Patient does have good understanding about renal-related issues. Counseled and educated to get further education from [employer] and related links, and upon discharge to make a follow-up appointment in the office with Dr. Zeferino Castro We'll continue to follow and make recommendations from renal standpoint. If you have any questions please feel free to contact me at [phone] Thank you for the consultation. Past History Past Medical History: atrial fib, CAD, diabetes, heart failure, hypertension, hyperlipidemia, other (CKD; PVD) Past Surgical History: CABG Social history: single. denies: smoking, alcohol abuse, prescription drug abuse Family history: hypertension Medications and Allergies Allergies Allergy/AdvReac Type Severity Reaction Status Date / Time No Known Allergies Allergy Unverified 09/09/17 19:32 Home Medications Medication Instructions Recorded Confirmed Last Taken Type Apixaban [Eliquis] 5 mg PO BID 09/10/17 01/30/18 09/09/17 History Aspirin [Aspirin BABY CHEW TAB] 81 mg PO QDAY 09/10/17 01/30/18 09/09/17 History Insulin Glargine,Hum.rec.anlog See Protocol SQ HS PRN 09/10/17 01/30/18 History [Lantus Solostar] ALPRAZolam [Xanax TAB] 0.25 mg PO BID PRN #10 tab 09/16/17 01/30/18 Unknown Rx AtorvaSTATin [Lipitor] 40 mg PO QHS #30 tablet 09/16/17 01/30/18 Unknown Rx Carvedilol [Coreg] 12.5 mg PO BID #60 tablet 09/16/17 01/30/18 Unknown Rx ISOSORBIDE MONOnitrate [Imdur ER] 120 mg PO QDAY #30 tablet 09/16/17 01/30/18 Unknown Rx Spironolactone [Aldactone] 25 mg PO QDAY #30 tablet 09/16/17 01/30/18 Unknown Rx amLODIPine [Norvasc] 5 mg PO QDAY #30 tablet 09/16/17 01/30/18 Unknown Rx hydrALAZINE [Apresoline TAB] 100 mg PO Q8HR 30 Days tablet 09/16/17 01/30/18 Unknown Rx Cholecalciferol Vit D3 [Vitamin D3] 1,000 unit PO QDAY 01/30/18 01/30/18 Unknown History Clopidogrel [Plavix] 75 mg PO QDAY 01/30/18 01/30/18 Unknown History Torsemide [Demadex] 10 mg PO QDAY 01/30/18 01/30/18 Unknown History Active Meds: Active Medications Acetaminophen (Tylenol) 650 mg PO Q4H PRN PRN Reason: Pain MILD(1-3)/Fever >100.5/[place] Albuterol (Proventil) 2.5 mg IH Q4HRT PRN PRN Reason: Shortness Of Breath Alprazolam (Xanax) 0.25 mg PO BID PRN PRN Reason: Anxiety Amlodipine Besylate (Norvasc) 5 mg PO QDAY [facility] Last Admin: 01/31/18 09:41 Dose: 5 mg Apixaban (Eliquis) 5 mg PO BID [facility]; Protocol Last Admin: 01/31/18 22:55 Dose: 5 mg Aspirin (Baby Aspirin) 81 mg PO QDAY [facility] Last Admin: 01/31/18 09:42 Dose: 81 mg Atorvastatin Calcium (Lipitor) 40 mg PO QHS [facility] Last Admin: 01/31/18 22:55 Dose: 40 mg Carvedilol (Coreg) 12.5 mg PO BID [facility] Last Admin: 01/31/18 22:55 Dose: 12.5 mg Cholecalciferol (Vitamin D3) 1,000 unit PO QDAY [facility] Last Admin: 01/31/18 09:42 Dose: 1,000 unit Clopidogrel Bisulfate (Plavix) 75 mg PO QDAY [facility] Last Admin: 01/31/18 09:42 Dose: 75 mg Furosemide (Lasix) 40 mg IV BID@0600,1800 [facility] Last Admin: 02/01/18 06:20 Dose: 40 mg Hydralazine HCl (Apresoline) 100 mg PO Q8HR [facility] Last Admin: 02/01/18 06:19 Dose: 100 mg Hydralazine HCl (Apresoline) 20 mg IV Q4HR PRN PRN Reason: Hypertension Last Admin: 01/31/18 01:59 Dose: 20 mg Insulin Human Lispro (Humalog) 0 unit SUB-Q [facility]; Protocol Last Admin: 02/01/18 07:38 Dose: Not Given Isosorbide Mononitrate (Imdur) 120 mg PO QDAY [facility] Last Admin: 01/31/18 09:42 Dose: 120 mg Ondansetron HCl (Zofran) 4 mg IV Q8H PRN PRN Reason: Nausea And Vomiting Sodium Chloride (Sodium Chloride Flush Syringe 10 Ml) 10 ml IV BID [facility] Last Admin: 01/31/18 22:55 Dose: 10 ml Sodium Chloride (Sodium Chloride Flush Syringe 10 Ml) 10 ml IV PRN PRN PRN Reason: LINE FLUSH Spironolactone (Aldactone) 25 mg PO QDAY [facility] Last Admin: 01/31/18 09:41 Dose: 25 mg Torsemide (Demadex) 10 mg PO QDAY [facility] Last Admin: 01/31/18 09:41 Dose: 10 mg Exam - Vital Signs Vital signs: Vital Signs Pulse Resp BP Pulse Ox 83 28 H 181/102 97 01/30/18 17:23 01/30/18 17:23 01/30/18 17:23 01/30/18 17:23 Results - Lab Results 01/30/18 19:18 02/01/18 07:09 Most recent lab results Calcium 8.6 mg/dL (8.4-10.2) 02/01/18 07:09 Phosphorus 3.60 mg/dL (2.5-4.5) 01/31/18 05:07 Magnesium 1.90 mg/dL (1.7-2.3) 01/31/18 05:07
[2018-02-01] MEDS: PLAVIX PO SCH (11:25)
[2018-02-01] MEDS: ELIQUIS PO SCH ×2 (11:25→21:40)
[2018-02-01] MEDS: ALDACTONE PO SCH (11:26)
[2018-02-01] MEDS: VITAMIN D3 PO SCH (11:26)
[2018-02-01] MEDS: IMDUR PO SCH (11:26)
[2018-02-01] MEDS: DEMADEX PO SCH (11:26)
[2018-02-01] MEDS: NORVASC PO SCH (11:27)
[2018-02-01] MEDS: COREG PO SCH ×2 (11:27→21:40)
[2018-02-01] MEDS: BABY ASPIRIN PO SCH (11:27)
[2018-02-01] MEDS ORDERED: NORVASC PO SCH (11:51)
[2018-02-01] MEDS ORDERED: COREG PO SCH ×2 (11:51→22:00)
--- NOTE | 2018-02-01 11:53 | Progress Note ---
Assessment and Plan Assessment: Acute diastolic heart failure / pulmonary edema Hypertensive urgency CAD s/p CABG in 2010 Paroxysmal atrial fibrillation, anticoagulated with Eliquis DM MAYLIN on CKD HLP PVD Plan: Optimize anti-hypertensive regimen - increase norvasc to 10mg daily and coreg to 25mg BID. Await nephrology consultation. Assessment and plan reviewed with pt at bedside. The patient has been seen in conjunction with Dr. Otoole who agrees with the assessment and plan of care. Subjective Date of service: 02/01/18 Principal diagnosis: HF Interval history: pt ambulating around room, states SOB improving, on RA. Objective Last Vital Signs Temp 97.4 F L 02/01/18 08:02 Pulse 74 02/01/18 11:27 Resp 20 02/01/18 08:02 BP 202/93 02/01/18 11:26 Pulse Ox 96 02/01/18 10:00 - Physical Examination HEENT: Positive: PERRL, Normocephaly, Mucus Membranes Moist Neck: Positive: neck supple, trachea midline Cardiac: Positive: Reg Rate and Rhythm, S1/S2 Lungs: Positive: Rales (bibasilar ) Neuro: Positive: Grossly Intact Abdomen: Positive: Soft. Negative: Tender Skin: Positive: Clear. Negative: Rash, Wound Musculoskeletal: No Pain, Normal Range of Motion Extremities: Present: +2 Edema (BLE) - Labs and Meds Comprehensive Metabolic Panel 02/01/18 Range/Units 07:09 Sodium 141 (137-145) mmol/L Potassium 3.7 (3.6-5.0) mmol/L Chloride 98.8 (98-107) mmol/L Carbon Dioxide 24 (22-30) mmol/L BUN 46 H (9-20) mg/dL Creatinine 3.3 H (0.8-1.5) mg/dL Glucose 123 H (75-100) mg/dL Calcium 8.6 (8.4-10.2) mg/dL - Imaging and Cardiology EKG: report reviewed, image reviewed Echo: report reviewed ( 08/2017 showed EF 55-60%, mod to severe LVH, restrictive diastolic filling pattern. ) Cardiac cath: report reviewed (01/2017 showed Left main patent LAD proximal 30% mid 100% patent MARTINEZ to diagonal with retrograde fill into small LAD. Ramus medium caliber vessel patent feeds to anterior lateral portion of the heart. Circumflex 100% weight OM1 50% RCA 100%. With SVG to PDA patent feeding the PDA and PLV. SVG to obtuse marginal was 100% EF 55% mild inferior apical hypokinesis.) - Telemetry EKG Rhythm: Sinus Rhythm - EKG Sinus rhythms and dysrhythmias: sinus rhythm Chamber hypertrophy or enlargement: left ventricular hypertro
[2018-02-01] MEDS ORDERED: NORVASC PO ONE (13:00)
--- NOTE | 2018-02-01 14:31 | Progress Note ---
Assessment and Plan Assessment and plan: Acute on chronic diastolic CHF. Less shortness of breath, less leg edema Cont Coreg, Lasix Cardiology following CAD s/p CABG. On Aspirin, Plavix, Coreg, Lipitor, Imdur Diabetes mellitus type 2. Fingerstick qac and HS paroxysmal atrial fib. On Eliquis for anticoagulation Hypertensive urgency. BP improving Hyperlipidemia Acute on Chronic kidney disease. Cr 3.3 today. Consult Nephrology On Lasix iv DVT prophylaxis. On Eliquis Full code status History Interval history: Shortness of breath Swollen legs No chest pain Hospitalist Physical - Physical exam Narrative exam: General: Not in acute distress, Obese, HEENT:Normocephalic, atraumatic Neck:supple,no JVD Lungs: Clear to auscultation bilaterally, no crackles, no wheeze Heart:S1 and S2 regular, no murmurs, rubs or gallop Abd: soft, non tender, non distended, normal bowel sounds Ext: Bilateral lower ext edema, no clubbing, no cyanosis Neuro: AAO x 3, moves all extremities. - Constitutional Vitals: Temp Pulse Resp BP Pulse Ox 97.4 F L 74 20 202/93 96 02/01/18 08:02 02/01/18 11:27 02/01/18 08:02 02/01/18 11:26 02/01/18 10:00 General appearance: Present: no acute distress Results - Labs CBC & Chem 7: 01/30/18 19:18 02/01/18 07:09 Labs: Laboratory Last Values WBC 10.2 K/mm3 (4.5-11.0) 01/30/18 19:18 RBC 4.13 M/mm3 (3.65-5.03) 01/30/18 19:18 Hgb 10.7 gm/dl (11.8-15.2) L 01/30/18 19:18 Hct 33.5 % (35.5-45.6) L 01/30/18 19:18 MCV 81 fl (84-94) L 01/30/18 19:18 MCH 26 pg (28-32) L 01/30/18 19:18 MCHC 32 % (32-34) 01/30/18 19:18 RDW 21.8 % (13.2-15.2) H 01/30/18 19:18 Plt Count 351 K/mm3 (140-440) 01/30/18 19:18 Lymph % (Auto) 6.1 % (13.4-35.0) L 01/30/18 19:18 [place] % (Auto) 7.6 % (0.0-7.3) H 01/30/18 19:18 Eos % (Auto) 0.2 % (0.0-4.3) 01/30/18 19:18 Baso % (Auto) 0.5 % (0.0-1.8) 01/30/18 19:18 Lymph # 0.6 K/mm3 (1.2-5.4) L 01/30/18 19:18 [place] # 0.8 K/mm3 (0.0-0.8) 01/30/18 19:18 Eos # 0.0 K/mm3 (0.0-0.4) 01/30/18 19:18 Baso # 0.1 K/mm3 (0.0-0.1) 01/30/18 19:18 Seg Neutrophils % 85.6 % (40.0-70.0) H 01/30/18 19:18 Seg Neutrophils # 8.7 K/mm3 (1.8-7.7) H 01/30/18 19:18 Sodium 141 mmol/L (137-145) 02/01/18 07:09 Potassium 3.7 mmol/L (3.6-5.0) 02/01/18 07:09 Chloride 98.8 mmol/L (98-107) 02/01/18 07:09 Carbon Dioxide 24 mmol/L (22-30) 02/01/18 07:09 Anion Gap 22 mmol/L 02/01/18 07:09 BUN 46 mg/dL (9-20) H 02/01/18 07:09 Creatinine 3.3 mg/dL (0.8-1.5) H 02/01/18 07:09 Estimated GFR 23 ml/min 02/01/18 07:09 BUN/Creatinine Ratio 14 % 02/01/18 07:09 Glucose 123 mg/dL (75-100) H 02/01/18 07:09 POC Glucose 151 (70-105) H 02/01/18 11:44 Calcium 8.6 mg/dL (8.4-10.2) 02/01/18 07:09 Phosphorus 3.60 mg/dL (2.5-4.5) 01/31/18 05:07 Magnesium 1.90 mg/dL (1.7-2.3) 01/31/18 05:07 Troponin T 0.073 ng/mL (0.00-0.029) H 01/30/18 17:52 NT-Pro-B Natriuret Pep 9307 pg/mL (0-900) H 01/30/18 19:24 Triglycerides 70 mg/dL (2-149) 01/30/18 17:52 Cholesterol 149 mg/dL (50-199) 01/30/18 17:52 LDL Cholesterol Direct 71 mg/dL (50-130) 01/30/18 17:52 HDL Cholesterol 77 mg/dL (40-59) H 01/30/18 17:52 Cholesterol/HDL Ratio 1.93 % 01/30/18 17:52
[2018-02-01] MEDS: SODIUM CHLORIDE FLUSH SYRINGE 10 ML IV SCH (21:38)
[2018-02-01] MEDS: TYLENOL PO PRN (21:39)
[2018-02-02] MEDS: LASIX IV SCH ×2 (06:50→17:26)
[2018-02-02] MEDS: APRESOLINE PO SCH ×3 (07:23→22:51)
[2018-02-02 08:00] LABS: Calcium 8.3 mg/dL (8.4-10.2)
[2018-02-02] MEDS ORDERED: NITROSTAT SL PRN (08:00)
[2018-02-02] MEDS: HumaLOG SUB-Q SCH ×4 (09:39→22:50)
[2018-02-02] MEDS: SODIUM CHLORIDE FLUSH SYRINGE 10 ML IV SCH ×2 (09:40→22:50)
[2018-02-02] MEDS: BABY ASPIRIN PO SCH (09:41)
[2018-02-02] MEDS: COREG PO SCH ×2 (09:41→22:52)
[2018-02-02] MEDS: VITAMIN D3 PO SCH (09:41)
[2018-02-02] MEDS: NORVASC PO SCH (09:42)
[2018-02-02] MEDS: PLAVIX PO SCH (09:42)
[2018-02-02] MEDS: ELIQUIS PO SCH ×2 (09:42→22:52)
--- NOTE | 2018-02-02 09:50 | Progress Note ---
Subjective Principal diagnosis: HF Interval history: Patient was seen today for follow-up, on many renal related issues Patient currently denies having any symptoms of chest pain pressure shortness of breath Better aware about renal related issues Interdisciplinary notes were reviewed Vitals labs intake and output medications were reviewed from today Allergies: Reviewed Social history: Reviewed Family history: Reviewed Physical examination HEENT: Oral mucosa moist no pharyngeal erythema Neck: Supple no JVD Chest: Clear to auscultation no crackles rales or wheezes Heart: Regular rate and rhythm S1-S2 heard no S3-S4 Abdomen: Soft nontender no renal bruit no CVA tenderness no suprapubic fullness Extremity: 1+ edemaedema dry skin no peripheral cyanosis pulses palpable Neurological: Alert awake Musculoskeletal: No joint effusion noted Assessment and plan acute and chronic renal failure most of it appears to be prerenal due to congestive heart failure and diuresis Patient does have stage IV chronic kidney disease underlying being followed by Dr. Castro Creatinine appears to be currently stable at 3.3 Compliance extremely poor counseled and educated and discussed at length the significance school for improvement patient does understand this after a long discussion about diet and lifestyle changes, that needs to be implemented without any further delay in the absence of which he will end up on dialysis sooner hypokalemia: Please replace potassium Congestive heart failure education was done Accel hypertension currently much better controlled, patient can continue with spironolactone therapy as long as his potassium is stable he is stable from renal standpoint Labs were discussed with patient explained and simple Vietnamese does have good understanding off renal related issues, Will continue to follow and make recommendation from renal standpoint Objective - Vital Signs Vital signs: Vital Signs - 12hr 02/01/18 02/01/18 02/02/18 22:00 23:59 04:17 Temperature Pulse Rate 79 65 Respiratory 24 18 Rate Blood Pressure 134/55 139/52 O2 Sat by Pulse 97 96 Oximetry 02/02/18 02/02/18 02/02/18 07:23 07:39 09:41 Temperature 97.4 F L Pulse Rate 67 67 65 Respiratory 18 Rate Blood Pressure 139/52 158/57 158/57 O2 Sat by Pulse 100 Oximetry 02/02/18 09:42 Temperature Pulse Rate 65 Respiratory Rate Blood Pressure 158/57 O2 Sat by Pulse Oximetry - Lab 01/30/18 19:18 02/02/18 07:19 Most recent lab results Calcium 8.3 mg/dL (8.4-10.2) L 02/02/18 07:19 Phosphorus 3.60 mg/dL (2.5-4.5) 01/31/18 05:07 Magnesium 1.90 mg/dL (1.7-2.3) 01/31/18 05:07
[2018-02-02] MEDS: IMDUR PO SCH (09:54)
[2018-02-02] MEDS: ALDACTONE PO SCH (09:55)
--- NOTE | 2018-02-02 10:03 | Progress Note ---
Assessment and Plan Assessment and plan: Acute on chronic diastolic CHF. Less shortness of breath, less leg edema Cont Coreg, Lasix Cardiology following CAD s/p CABG. On Aspirin, Plavix, Coreg, Lipitor, Imdur Diabetes mellitus type 2. Fingerstick qac and HS paroxysmal atrial fib. On Eliquis for anticoagulation Hypertensive urgency. BP improving Hyperlipidemia Acute on Chronic kidney disease. Cr 3.3 today again, same as yesterday. Consulted Nephrology and he is being followed On Lasix iv DVT prophylaxis. On Eliquis Full code status History Interval history: Shortness of breath Swollen legs No chest pain Hospitalist Physical - Physical exam Narrative exam: General: Not in acute distress, Obese, HEENT:Normocephalic, atraumatic Neck:supple,no JVD Lungs: Clear to auscultation bilaterally, no crackles, no wheeze Heart:S1 and S2 regular, no murmurs, rubs or gallop Abd: soft, non tender, non distended, normal bowel sounds Ext: Bilateral lower ext edema, no clubbing, no cyanosis Neuro: AAO x 3, moves all extremities. - Constitutional Vitals: Temp Pulse Resp BP Pulse Ox 97.4 F L 65 18 158/57 100 02/02/18 07:39 02/02/18 09:55 02/02/18 07:39 02/02/18 09:55 02/02/18 07:39 General appearance: Present: no acute distress Results - Labs CBC & Chem 7: 01/30/18 19:18 02/02/18 07:19 Labs: Laboratory Last Values WBC 10.2 K/mm3 (4.5-11.0) 01/30/18 19:18 RBC 4.13 M/mm3 (3.65-5.03) 01/30/18 19:18 Hgb 10.7 gm/dl (11.8-15.2) L 01/30/18 19:18 Hct 33.5 % (35.5-45.6) L 01/30/18 19:18 MCV 81 fl (84-94) L 01/30/18 19:18 MCH 26 pg (28-32) L 01/30/18 19:18 MCHC 32 % (32-34) 01/30/18 19:18 RDW 21.8 % (13.2-15.2) H 01/30/18 19:18 Plt Count 351 K/mm3 (140-440) 01/30/18 19:18 Lymph % (Auto) 6.1 % (13.4-35.0) L 01/30/18 19:18 [place] % (Auto) 7.6 % (0.0-7.3) H 01/30/18 19:18 Eos % (Auto) 0.2 % (0.0-4.3) 01/30/18 19:18 Baso % (Auto) 0.5 % (0.0-1.8) 01/30/18 19:18 Lymph # 0.6 K/mm3 (1.2-5.4) L 01/30/18 19:18 [place] # 0.8 K/mm3 (0.0-0.8) 01/30/18 19:18 Eos # 0.0 K/mm3 (0.0-0.4) 01/30/18 19:18 Baso # 0.1 K/mm3 (0.0-0.1) 01/30/18 19:18 Seg Neutrophils % 85.6 % (40.0-70.0) H 01/30/18 19:18 Seg Neutrophils # 8.7 K/mm3 (1.8-7.7) H 01/30/18 19:18 Sodium 142 mmol/L (137-145) 02/02/18 07:19 Potassium 3.3 mmol/L (3.6-5.0) L 02/02/18 07:19 Chloride 101.3 mmol/L (98-107) 02/02/18 07:19 Carbon Dioxide 25 mmol/L (22-30) 02/02/18 07:19 Anion Gap 19 mmol/L 02/02/18 07:19 BUN 17 mg/dL (9-20) 02/02/18 07:19 Creatinine 3.3 mg/dL (0.8-1.5) H 02/02/18 07:19 Estimated GFR 23 ml/min 02/02/18 07:19 BUN/Creatinine Ratio 5 % 02/02/18 07:19 Glucose 104 mg/dL (75-100) H 02/02/18 07:19 POC Glucose 93 (70-105) 02/02/18 07:10 Calcium 8.3 mg/dL (8.4-10.2) L 02/02/18 07:19 Phosphorus 3.60 mg/dL (2.5-4.5) 01/31/18 05:07 Magnesium 1.90 mg/dL (1.7-2.3) 01/31/18 05:07 Troponin T 0.073 ng/mL (0.00-0.029) H 01/30/18 17:52 NT-Pro-B Natriuret Pep 9307 pg/mL (0-900) H 01/30/18 19:24 Triglycerides 70 mg/dL (2-149) 01/30/18 17:52 Cholesterol 149 mg/dL (50-199) 01/30/18 17:52 LDL Cholesterol Direct 71 mg/dL (50-130) 01/30/18 17:52 HDL Cholesterol 77 mg/dL (40-59) H 01/30/18 17:52 Cholesterol/HDL Ratio 1.93 % 01/30/18 17:52
--- NOTE | 2018-02-02 11:00 | Progress Note ---
Assessment and Plan Assessment: Acute diastolic heart failure / pulmonary edema Hypertensive urgency - improving CAD s/p CABG in 2010 Paroxysmal atrial fibrillation, anticoagulated with Eliquis DM MAYLIN on CKD HLP PVD Hypokalemia Plan: Cont present cardiac regimen. Serum Cr unchanged from yesterday, BUN decreased. Nephrology following and are continuing IV diuresis at this time. Replete K_ per nephrology. Repeat BMP in AM. Assessment and plan reviewed with pt at bedside. The patient has been seen in conjunction with Dr. Otoole who agrees with the assessment and plan of care. Subjective Date of service: 02/02/18 Principal diagnosis: HF Interval history: pt ambulating around room, states SOB improving, on RA. BPs improving. Objective Last Vital Signs Temp 97.4 F L 02/02/18 07:39 Pulse 65 02/02/18 09:55 Resp 18 02/02/18 07:39 BP 158/57 02/02/18 09:55 Pulse Ox 100 02/02/18 07:39 - Physical Examination General: No Apparent Distress HEENT: Positive: PERRL, Normocephaly, Mucus Membranes Moist Neck: Positive: neck supple, trachea midline Cardiac: Positive: Reg Rate and Rhythm, S1/S2 Lungs: Positive: Decreased Breath Sounds Neuro: Positive: Grossly Intact Abdomen: Positive: Soft. Negative: Tender Skin: Positive: Clear. Negative: Rash, Wound Musculoskeletal: No Pain, Normal Range of Motion Extremities: Present: +2 Edema (BLE) - Labs and Meds Comprehensive Metabolic Panel 02/02/18 Range/Units 07:19 Sodium 142 (137-145) mmol/L Potassium 3.3 L (3.6-5.0) mmol/L Chloride 101.3 (98-107) mmol/L Carbon Dioxide 25 (22-30) mmol/L BUN 17 (9-20) mg/dL Creatinine 3.3 H (0.8-1.5) mg/dL Glucose 104 H (75-100) mg/dL Calcium 8.3 L (8.4-10.2) mg/dL - Imaging and Cardiology EKG: report reviewed, image reviewed Echo: report reviewed ( 08/2017 showed EF 55-60%, mod to severe LVH, restrictive diastolic filling pattern. ) Cardiac cath: report reviewed (01/2017 showed Left main patent LAD proximal 30% mid 100% patent MARTINEZ to diagonal with retrograde fill into small LAD. Ramus medium caliber vessel patent feeds to anterior lateral portion of the heart. Circumflex 100% weight OM1 50% RCA 100%. With SVG to PDA patent feeding the PDA and PLV. SVG to obtuse marginal was 100% EF 55% mild inferior apical hypokinesis.) - Telemetry EKG Rhythm: Sinus Rhythm - EKG Sinus rhythms and dysrhythmias: sinus rhythm Chamber hypertrophy or enlargement: left ventricular hypertro
[2018-02-02] MEDS: TYLENOL PO PRN (22:50)
[2018-02-02] MEDS ORDERED: MILK OF MAGNESIA PO PRN (23:06)
[2018-02-03] MEDS: APRESOLINE PO SCH ×3 (06:48→23:21)
[2018-02-03] MEDS: LASIX IV SCH ×2 (06:49→18:14)
[2018-02-03] MEDS: HumaLOG SUB-Q SCH ×4 (08:27→22:40)
--- NOTE | 2018-02-03 08:55 | Progress Note ---
Subjective Principal diagnosis: HF Interval history: Patient was seen today for follow-up, on many renal related issues patient does complain of mild shortness of breath still continues to have swelling in both lower extremity Better aware about renal related issues Interdisciplinary notes were reviewed Vitals labs intake and output medications were reviewed from today Allergies: Reviewed Social history: Reviewed Family history: Reviewed Physical examination HEENT: Oral mucosa moist no pharyngeal erythema Neck: Supple no JVD Chest: Clear to auscultation no crackles rales or wheezes Heart: Regular rate and rhythm S1-S2 heard no S3-S4 Abdomen: Soft nontender no renal bruit no CVA tenderness no suprapubic fullness Extremity: 1+ edema dry skin no peripheral cyanosis pulses palpable Neurological: Alert awake Musculoskeletal: No joint effusion noted Assessment and plan acute and chronic renal failure most of it appears to be prerenal due to congestive heart failure and diuresis, diabetes as tolerated Aldactone Increased to 25 mg twice a day as long as potassium is stable History of underlying stage IV chronic kidney disease being followed by Dr. Castro Closely monitor renal function and check magnesium level while diuresing as patient is also hypokalemic Dietary compliance appears to be extremely poor counselor and educated Accelerated hypertension would recommend increasing spironolactone to 25 mg twice a day and follow overall stable from a renal standpoint Patient has been explained and simple Czech about renal-related issues He will need to make a follow-up appointment in the office upon discharge Will continue to follow and make recommendation from renal standpoint Objective - Vital Signs Vital signs: Vital Signs - 12hr 02/02/18 02/02/18 02/02/18 22:00 22:37 22:38 Temperature 98.0 F Pulse Rate 74 70 74 Respiratory 20 Rate Blood Pressure 174/78 Blood Pressure [Left] O2 Sat by Pulse 98 96 97 Oximetry 02/02/18 02/02/18 02/03/18 22:51 22:52 04:25 Temperature 98.0 F Pulse Rate 68 68 67 Respiratory 20 Rate Blood Pressure 169/77 168/77 Blood Pressure 152/69 [Left] O2 Sat by Pulse 92 Oximetry 02/03/18 06:48 Temperature Pulse Rate 67 Respiratory Rate Blood Pressure 157/69 Blood Pressure [Left] O2 Sat by Pulse Oximetry - Lab 01/30/18 19:18 02/03/18 06:53 Most recent lab results Calcium 8.3 mg/dL (8.4-10.2) L 02/02/18 07:19 Phosphorus 3.60 mg/dL (2.5-4.5) 01/31/18 05:07 Magnesium 1.90 mg/dL (1.7-2.3) 01/31/18 05:07
[2018-02-03 08:57] LABS: Calcium 8.5 mg/dL (8.4-10.2)
--- NOTE | 2018-02-03 10:40 | Progress Note ---
Assessment and Plan Assessment and plan: Acute on chronic diastolic CHF. Less shortness of breath, less leg edema Cont Coreg, Lasix Cardiology following CAD s/p CABG. On Aspirin, Plavix, Coreg, Lipitor, Imdur Diabetes mellitus type 2. Fingerstick qac and HS paroxysmal atrial fib. On Eliquis for anticoagulation Hypertensive urgency. BP improving Hyperlipidemia Acute on Chronic kidney disease. Cr 3.5 today. Nephrology following DVT prophylaxis. On Eliquis Full code status History Interval history: Less shortness of breath Swollen legs No chest pain Hospitalist Physical - Physical exam Narrative exam: General: Not in acute distress, Obese, HEENT:Normocephalic, atraumatic Neck:supple,no JVD Lungs: Clear to auscultation bilaterally, no crackles, no wheeze Heart:S1 and S2 regular, no murmurs, rubs or gallop Abd: soft, non tender, non distended, normal bowel sounds Ext: Bilateral lower ext edema, no clubbing, no cyanosis Neuro: AAO x 3, moves all extremities. - Constitutional Vitals: Temp Pulse Resp BP Pulse Ox 97.5 F L 65 18 150/68 96 02/03/18 07:50 02/03/18 07:50 02/03/18 07:50 02/03/18 07:50 02/03/18 07:50 General appearance: Present: no acute distress Results - Labs CBC & Chem 7: 01/30/18 19:18 02/03/18 06:53 Labs: Laboratory Last Values WBC 10.2 K/mm3 (4.5-11.0) 01/30/18 19:18 RBC 4.13 M/mm3 (3.65-5.03) 01/30/18 19:18 Hgb 10.7 gm/dl (11.8-15.2) L 01/30/18 19:18 Hct 33.5 % (35.5-45.6) L 01/30/18 19:18 MCV 81 fl (84-94) L 01/30/18 19:18 MCH 26 pg (28-32) L 01/30/18 19:18 MCHC 32 % (32-34) 01/30/18 19:18 RDW 21.8 % (13.2-15.2) H 01/30/18 19:18 Plt Count 351 K/mm3 (140-440) 01/30/18 19:18 Lymph % (Auto) 6.1 % (13.4-35.0) L 01/30/18 19:18 [place] % (Auto) 7.6 % (0.0-7.3) H 01/30/18 19:18 Eos % (Auto) 0.2 % (0.0-4.3) 01/30/18 19:18 Baso % (Auto) 0.5 % (0.0-1.8) 01/30/18 19:18 Lymph # 0.6 K/mm3 (1.2-5.4) L 01/30/18 19:18 [place] # 0.8 K/mm3 (0.0-0.8) 01/30/18 19:18 Eos # 0.0 K/mm3 (0.0-0.4) 01/30/18 19:18 Baso # 0.1 K/mm3 (0.0-0.1) 01/30/18 19:18 Seg Neutrophils % 85.6 % (40.0-70.0) H 01/30/18 19:18 Seg Neutrophils # 8.7 K/mm3 (1.8-7.7) H 01/30/18 19:18 Sodium 141 mmol/L (137-145) 02/03/18 06:53 Potassium 3.4 mmol/L (3.6-5.0) L 02/03/18 06:53 Chloride 98.5 mmol/L (98-107) 02/03/18 06:53 Carbon Dioxide 22 mmol/L (22-30) 02/03/18 06:53 Anion Gap 24 mmol/L 02/03/18 06:53 BUN 56 mg/dL (9-20) H 02/03/18 06:53 Creatinine 3.5 mg/dL (0.8-1.5) H 02/03/18 06:53 Estimated GFR 21 ml/min 02/03/18 06:53 BUN/Creatinine Ratio 16 % 02/03/18 06:53 Glucose 102 mg/dL (75-100) H 02/03/18 06:53 POC Glucose 111 (70-105) H 02/03/18 04:35 Calcium 8.5 mg/dL (8.4-10.2) 02/03/18 06:53 Phosphorus 3.60 mg/dL (2.5-4.5) 01/31/18 05:07 Magnesium 1.90 mg/dL (1.7-2.3) 01/31/18 05:07 Troponin T 0.073 ng/mL (0.00-0.029) H 01/30/18 17:52 NT-Pro-B Natriuret Pep 9307 pg/mL (0-900) H 01/30/18 19:24 Triglycerides 70 mg/dL (2-149) 01/30/18 17:52 Cholesterol 149 mg/dL (50-199) 01/30/18 17:52 LDL Cholesterol Direct 71 mg/dL (50-130) 01/30/18 17:52 HDL Cholesterol 77 mg/dL (40-59) H 01/30/18 17:52 Cholesterol/HDL Ratio 1.93 % 01/30/18 17:52
[2018-02-03] MEDS: ELIQUIS PO SCH ×2 (10:46→23:21)
[2018-02-03] MEDS: IMDUR PO SCH (10:46)
[2018-02-03] MEDS: PLAVIX PO SCH (10:46)
[2018-02-03] MEDS: VITAMIN D3 PO SCH (10:46)
[2018-02-03] MEDS: NORVASC PO SCH (10:46)
[2018-02-03] MEDS: ALDACTONE PO SCH (10:46)
[2018-02-03] MEDS: COREG PO SCH ×2 (10:46→23:22)
[2018-02-03] MEDS: SODIUM CHLORIDE FLUSH SYRINGE 10 ML IV SCH ×2 (10:47→23:22)
[2018-02-03] MEDS: BABY ASPIRIN PO SCH (10:47)
--- NOTE | 2018-02-03 11:48 | Progress Note ---
Assessment and Plan Assessment: Acute diastolic heart failure / pulmonary edema Hypertensive urgency - improving CAD s/p CABG in 2010 Paroxysmal atrial fibrillation, anticoagulated with Eliquis-->currently SR DM MAYLIN on CKD HLP PVD Hypokalemia Plan: BP improved. Cont present cardiac regimen. Management of diuretics per nephrology. Assessment and plan reviewed with pt at bedside. The patient has been seen in conjunction with Dr. Otoole who agrees with the assessment and plan of care. Subjective Date of service: 02/03/18 Principal diagnosis: HF Interval history: The patient is sitting up on the edge of the bed. Shortness of breath improved. Sinus rhythm on the monitor. Objective Last Vital Signs Temp 97.5 F L 02/03/18 07:50 Pulse 65 02/03/18 10:00 Resp 18 02/03/18 07:50 BP 150/68 02/03/18 07:50 Pulse Ox 96 02/03/18 07:50 - Physical Examination General: No Apparent Distress HEENT: Positive: PERRL, Normocephaly, Mucus Membranes Moist Neck: Positive: neck supple, trachea midline Cardiac: Positive: Reg Rate and Rhythm, S1/S2 Lungs: Positive: clear to auscultation Neuro: Positive: Grossly Intact Abdomen: Positive: Soft. Negative: Tender Skin: Positive: Clear. Negative: Rash, Wound Musculoskeletal: No Pain, Normal Range of Motion Extremities: Present: +1 Edema (BLE) - Labs and Meds Comprehensive Metabolic Panel 02/03/18 Range/Units 06:53 Sodium 141 (137-145) mmol/L Potassium 3.4 L (3.6-5.0) mmol/L Chloride 98.5 (98-107) mmol/L Carbon Dioxide 22 (22-30) mmol/L BUN 56 H (9-20) mg/dL Creatinine 3.5 H (0.8-1.5) mg/dL Glucose 102 H (75-100) mg/dL Calcium 8.5 (8.4-10.2) mg/dL - Imaging and Cardiology EKG: report reviewed, image reviewed Echo: report reviewed ( 08/2017 showed EF 55-60%, mod to severe LVH, restrictive diastolic filling pattern. ) Cardiac cath: report reviewed (01/2017 showed Left main patent LAD proximal 30% mid 100% patent MARTINEZ to diagonal with retrograde fill into small LAD. Ramus medium caliber vessel patent feeds to anterior lateral portion of the heart. Circumflex 100% weight OM1 50% RCA 100%. With SVG to PDA patent feeding the PDA and PLV. SVG to obtuse marginal was 100% EF 55% mild inferior apical hypokinesis.) - Telemetry EKG Rhythm: Sinus Rhythm - EKG Sinus rhythms and dysrhythmias: sinus rhythm Chamber hypertrophy or enlargement: left ventricular hypertro
[2018-02-04] MEDS: APRESOLINE PO SCH ×3 (06:05→22:36)
[2018-02-04] MEDS: LASIX IV SCH ×2 (06:05→19:28)
[2018-02-04 06:54] LABS: Calcium 8.4 mg/dL (8.4-10.2)
[2018-02-04] MEDS: HumaLOG SUB-Q SCH ×4 (08:09→22:35)
[2018-02-04] MEDS: ALDACTONE PO SCH (10:34)
[2018-02-04] MEDS: ELIQUIS PO SCH ×2 (10:34→22:35)
[2018-02-04] MEDS: BABY ASPIRIN PO SCH (10:34)
[2018-02-04] MEDS: COREG PO SCH (10:34)
[2018-02-04] MEDS: VITAMIN D3 PO SCH (10:35)
[2018-02-04] MEDS: NORVASC PO SCH (10:35)
[2018-02-04] MEDS: PLAVIX PO SCH (10:35)
[2018-02-04] MEDS: IMDUR PO SCH (10:36)
--- NOTE | 2018-02-04 11:46 | Progress Note ---
Assessment and Plan Impression * Acute on chronic renal failure * Congestive heart failure * Coronary artery disease. Status post bypass surgery * Accelerated hypertension * Paroxysmal atrial fibrillation * Diabetes Recommendations * Volume status, improving * Renal function is stable * Continue diuresis as needed * Patient currently on anticoagulation for his A. fib . Rate is also controlled * Avoid nephrotoxins * Monitor fluid status and electrolytes closely * Further plan as per cardiology services * Okay to discharge from renal standpoint with close outpatient follow-up Subjective Date of service: 02/04/18 Principal diagnosis: HF Interval history: Patient is comfortable today. Shortness of breath is improving. No nausea, vomiting or diarrhea. Ankle swelling is also better. Objective - Vital Signs Vital signs: Vital Signs - 12hr 02/04/18 02/04/18 02/04/18 04:48 06:05 08:17 Temperature 97.6 F 98.0 F Pulse Rate 61 68 63 Respiratory 18 Rate Blood Pressure 145/57 144/55 O2 Sat by Pulse 97 97 Oximetry 02/04/18 02/04/18 09:45 10:34 Temperature Pulse Rate 57 L Respiratory Rate Blood Pressure O2 Sat by Pulse 96 Oximetry - General Appearance General appearance: well-developed, well-nourished, appears stated age EENT: PERRL, mucous membranes moist Neck: no JVD, no thyromegaly, no carotid bruit, supple Respiratory: Present: Rales (Fine crackles right base) Cardiology: regular, normal heart rate, S1S2, no murmurs Gastrointestinal: normal, normoactive bowel sounds Integumentary: no rash, other (1+ edema) - Lab 01/30/18 19:18 02/04/18 05:45 Most recent lab results Calcium 8.4 mg/dL (8.4-10.2) 02/04/18 05:45 Phosphorus 3.60 mg/dL (2.5-4.5) 01/31/18 05:07 Magnesium 2.50 mg/dL (1.7-2.3) H 02/03/18 10:00
--- NOTE | 2018-02-04 15:02 | Progress Note ---
Assessment and Plan Assessment and plan: Acute on chronic diastolic CHF. Less shortness of breath, less leg edema Cont Coreg, Lasix Cardiology following. Acute resp failure due to CHF. On supplemental Oxygen. Became more short of breath today, on ambulation. CAD s/p CABG. On Aspirin, Plavix, Coreg, Lipitor, Imdur Diabetes mellitus type 2. Fingerstick qac and HS paroxysmal atrial fib. On Eliquis for anticoagulation Hypertensive urgency. BP improving Hyperlipidemia Acute on Chronic kidney disease. Cr 3.2 today. Nephrology following DVT prophylaxis. On Eliquis Full code status Likely dc home in 1-2 days History Interval history: Patient became more short of breath, hypoxic on ambulation, O2 sats 88% Less swolling of legs No chest pain Hospitalist Physical - Physical exam Narrative exam: General: Not in acute distress, Obese, HEENT:Normocephalic, atraumatic Neck:supple,no JVD Lungs: Clear to auscultation bilaterally, no crackles, no wheeze Heart:S1 and S2 regular, no murmurs, rubs or gallop Abd: soft, non tender, non distended, normal bowel sounds Ext: Bilateral lower ext edema improving, no clubbing, no cyanosis Neuro: AAO x 3, moves all extremities. - Constitutional Vitals: Temp Pulse Resp BP Pulse Ox 98.6 F 59 L 18 145/67 97 02/04/18 12:35 02/04/18 12:35 02/04/18 12:35 02/04/18 12:35 02/04/18 12:35 General appearance: Present: no acute distress Results - Labs CBC & Chem 7: 01/30/18 19:18 02/04/18 05:45 Labs: Laboratory Last Values WBC 10.2 K/mm3 (4.5-11.0) 01/30/18 19:18 RBC 4.13 M/mm3 (3.65-5.03) 01/30/18 19:18 Hgb 10.7 gm/dl (11.8-15.2) L 01/30/18 19:18 Hct 33.5 % (35.5-45.6) L 01/30/18 19:18 MCV 81 fl (84-94) L 01/30/18 19:18 MCH 26 pg (28-32) L 01/30/18 19:18 MCHC 32 % (32-34) 01/30/18 19:18 RDW 21.8 % (13.2-15.2) H 01/30/18 19:18 Plt Count 351 K/mm3 (140-440) 01/30/18 19:18 Lymph % (Auto) 6.1 % (13.4-35.0) L 01/30/18 19:18 [place] % (Auto) 7.6 % (0.0-7.3) H 01/30/18 19:18 Eos % (Auto) 0.2 % (0.0-4.3) 01/30/18 19:18 Baso % (Auto) 0.5 % (0.0-1.8) 01/30/18 19:18 Lymph # 0.6 K/mm3 (1.2-5.4) L 01/30/18 19:18 [place] # 0.8 K/mm3 (0.0-0.8) 01/30/18 19:18 Eos # 0.0 K/mm3 (0.0-0.4) 01/30/18 19:18 Baso # 0.1 K/mm3 (0.0-0.1) 01/30/18 19:18 Seg Neutrophils % 85.6 % (40.0-70.0) H 01/30/18 19:18 Seg Neutrophils # 8.7 K/mm3 (1.8-7.7) H 01/30/18 19:18 Sodium 136 mmol/L (137-145) L 02/04/18 05:45 Potassium 3.5 mmol/L (3.6-5.0) L 02/04/18 05:45 Chloride 94.7 mmol/L (98-107) L 02/04/18 05:45 Carbon Dioxide 26 mmol/L (22-30) 02/04/18 05:45 Anion Gap 19 mmol/L 02/04/18 05:45 BUN 55 mg/dL (9-20) H 02/04/18 05:45 Creatinine 3.2 mg/dL (0.8-1.5) H 02/04/18 05:45 Estimated GFR 23 ml/min 02/04/18 05:45 BUN/Creatinine Ratio 17 % 02/04/18 05:45 Glucose 118 mg/dL (75-100) H 02/04/18 05:45 POC Glucose 136 (70-105) H 02/04/18 12:43 Calcium 8.4 mg/dL (8.4-10.2) 02/04/18 05:45 Phosphorus 3.60 mg/dL (2.5-4.5) 01/31/18 05:07 Magnesium 2.50 mg/dL (1.7-2.3) H 02/03/18 10:00 Troponin T 0.073 ng/mL (0.00-0.029) H 01/30/18 17:52 NT-Pro-B Natriuret Pep 9307 pg/mL (0-900) H 01/30/18 19:24 Triglycerides 70 mg/dL (2-149) 01/30/18 17:52 Cholesterol 149 mg/dL (50-199) 01/30/18 17:52 LDL Cholesterol Direct 71 mg/dL (50-130) 01/30/18 17:52 HDL Cholesterol 77 mg/dL (40-59) H 01/30/18 17:52 Cholesterol/HDL Ratio 1.93 % 01/30/18 17:52
[2018-02-04] MEDS: SODIUM CHLORIDE FLUSH SYRINGE 10 ML IV SCH ×2 (21:57→22:35)
[2018-02-05] MEDS: COREG PO SCH ×3 (00:01→22:12)
[2018-02-05] MEDS: APRESOLINE PO SCH ×3 (06:10→22:11)
[2018-02-05] MEDS: LASIX IV SCH ×2 (06:10→17:14)
[2018-02-05 07:44] LABS: Calcium 8.6 mg/dL (8.4-10.2)
--- NOTE | 2018-02-05 08:54 | Progress Note ---
Assessment and Plan Assessment and plan: Acute on chronic diastolic CHF. Less shortness of breath, less leg edema Cont Coreg, Lasix on hold because of acute on chronic kidney disease Cardiology following. Acute resp failure due to CHF. On supplemental Oxygen. Became more short of breath yesterday on ambulation O2 sat 88%, and today O2 sat 87% on ambulation. may need home oxygen. Will discuss with Case management CAD s/p CABG. On Aspirin, Plavix, Coreg, Lipitor, Imdur Diabetes mellitus type 2. Fingerstick qac and HS paroxysmal atrial fib. On Eliquis for anticoagulation Hypertensive urgency. BP improving Hyperlipidemia Acute on Chronic kidney disease. Cr 3.3 today. Nephrology following DVT prophylaxis. On Eliquis Full code status Likely dc home in 1-2 days History Interval history: Patient became more short of breath, hypoxic on ambulation, O2 sats 87% Less swelling of legs No chest pain Hospitalist Physical - Physical exam Narrative exam: General: Not in acute distress, Obese, HEENT:Normocephalic, atraumatic Neck:supple,no JVD Lungs: Clear to auscultation bilaterally, no crackles, no wheeze Heart:S1 and S2 regular, no murmurs, rubs or gallop Abd: soft, non tender, non distended, normal bowel sounds Ext: Bilateral lower ext edema improving, no clubbing, no cyanosis Neuro: AAO x 3, moves all extremities. - Constitutional Vitals: Temp Pulse Resp BP Pulse Ox 97.8 F 62 20 168/77 93 02/05/18 07:31 02/05/18 07:31 02/05/18 07:31 02/05/18 07:31 02/05/18 08:50 General appearance: Present: no acute distress Results - Labs CBC & Chem 7: 01/30/18 19:18 02/05/18 06:39 Labs: Laboratory Last Values WBC 10.2 K/mm3 (4.5-11.0) 01/30/18 19:18 RBC 4.13 M/mm3 (3.65-5.03) 01/30/18 19:18 Hgb 10.7 gm/dl (11.8-15.2) L 01/30/18 19:18 Hct 33.5 % (35.5-45.6) L 01/30/18 19:18 MCV 81 fl (84-94) L 01/30/18 19:18 MCH 26 pg (28-32) L 01/30/18 19:18 MCHC 32 % (32-34) 01/30/18 19:18 RDW 21.8 % (13.2-15.2) H 01/30/18 19:18 Plt Count 351 K/mm3 (140-440) 01/30/18 19:18 Lymph % (Auto) 6.1 % (13.4-35.0) L 01/30/18 19:18 [place] % (Auto) 7.6 % (0.0-7.3) H 01/30/18 19:18 Eos % (Auto) 0.2 % (0.0-4.3) 01/30/18 19:18 Baso % (Auto) 0.5 % (0.0-1.8) 01/30/18 19:18 Lymph # 0.6 K/mm3 (1.2-5.4) L 01/30/18 19:18 [place] # 0.8 K/mm3 (0.0-0.8) 01/30/18 19:18 Eos # 0.0 K/mm3 (0.0-0.4) 01/30/18 19:18 Baso # 0.1 K/mm3 (0.0-0.1) 01/30/18 19:18 Seg Neutrophils % 85.6 % (40.0-70.0) H 01/30/18 19:18 Seg Neutrophils # 8.7 K/mm3 (1.8-7.7) H 01/30/18 19:18 Sodium 136 mmol/L (137-145) L 02/05/18 06:39 Potassium 3.4 mmol/L (3.6-5.0) L 02/05/18 06:39 Chloride 93.9 mmol/L (98-107) L 02/05/18 06:39 Carbon Dioxide 26 mmol/L (22-30) 02/05/18 06:39 Anion Gap 20 mmol/L 02/05/18 06:39 BUN 62 mg/dL (9-20) H 02/05/18 06:39 Creatinine 3.3 mg/dL (0.8-1.5) H 02/05/18 06:39 Estimated GFR 23 ml/min 02/05/18 06:39 BUN/Creatinine Ratio 19 % 02/05/18 06:39 Glucose 110 mg/dL (75-100) H 02/05/18 06:39 POC Glucose 99 (70-105) 02/05/18 06:05 Calcium 8.6 mg/dL (8.4-10.2) 02/05/18 06:39 Phosphorus 3.60 mg/dL (2.5-4.5) 01/31/18 05:07 Magnesium 2.50 mg/dL (1.7-2.3) H 02/03/18 10:00 Troponin T 0.073 ng/mL (0.00-0.029) H 01/30/18 17:52 NT-Pro-B Natriuret Pep 9307 pg/mL (0-900) H 01/30/18 19:24 Triglycerides 70 mg/dL (2-149) 01/30/18 17:52 Cholesterol 149 mg/dL (50-199) 01/30/18 17:52 LDL Cholesterol Direct 71 mg/dL (50-130) 01/30/18 17:52 HDL Cholesterol 77 mg/dL (40-59) H 01/30/18 17:52 Cholesterol/HDL Ratio 1.93 % 01/30/18 17:52
[2018-02-05] MEDS ORDERED: K-DUR PO ONE (11:02)
--- NOTE | 2018-02-05 11:02 | Progress Note ---
Assessment and Plan Impression * Acute on chronic renal failure * Congestive heart failure * Coronary artery disease. Status post bypass surgery * Accelerated hypertension * Paroxysmal atrial fibrillation * Diabetes Recommendations * Volume status, improving * Renal function is stable * Continue diuresis as needed * Patient currently on anticoagulation for his A. fib . Rate is also controlled * Avoid nephrotoxins * Replace potassium * Monitor fluid status and electrolytes closely * Further plan as per cardiology services * Okay to discharge from renal standpoint with close outpatient follow-up Subjective Date of service: 02/05/18 Principal diagnosis: HF Interval history: Patient is comfortable today. Shortness of breath is improving. No nausea, vomiting or diarrhea. Ankle swelling is also better. Objective - Vital Signs Vital signs: Vital Signs - 12hr 02/04/18 02/05/18 02/05/18 23:53 00:01 04:24 Temperature 98.4 F 98.0 F Pulse Rate 68 68 71 Respiratory 20 Rate Blood Pressure 166/77 166/77 Blood Pressure 148/64 [Left] O2 Sat by Pulse 94 97 Oximetry 02/05/18 02/05/18 02/05/18 06:10 07:31 08:50 Temperature 97.8 F Pulse Rate 71 62 Respiratory 20 Rate Blood Pressure 148/64 168/77 Blood Pressure [Left] O2 Sat by Pulse 93 93 Oximetry - General Appearance General appearance: well-developed, well-nourished, appears stated age EENT: PERRL, mucous membranes moist Neck: no JVD, no thyromegaly, no carotid bruit, supple Respiratory: Present: Clear to Ascultation Cardiology: irregularly irregular, normal heart rate, S1S2, no murmurs Gastrointestinal: normal, normoactive bowel sounds Integumentary: no rash, other (1+ edema ) - Lab 01/30/18 19:18 02/05/18 06:39 Most recent lab results Calcium 8.6 mg/dL (8.4-10.2) 02/05/18 06:39 Phosphorus 3.60 mg/dL (2.5-4.5) 01/31/18 05:07 Magnesium 2.50 mg/dL (1.7-2.3) H 02/03/18 10:00
[2018-02-05] MEDS: HumaLOG SUB-Q SCH ×4 (12:46→22:17)
[2018-02-05] MEDS: ELIQUIS PO SCH ×2 (12:49→22:12)
[2018-02-05] MEDS: IMDUR PO SCH (12:51)
[2018-02-05] MEDS: PLAVIX PO SCH (12:53)
[2018-02-05] MEDS: NORVASC PO SCH (12:54)
[2018-02-05] MEDS: ALDACTONE PO SCH (12:54)
[2018-02-05] MEDS: VITAMIN D3 PO SCH (12:54)
[2018-02-05] MEDS: BABY ASPIRIN PO SCH (12:55)
[2018-02-05] MEDS: SODIUM CHLORIDE FLUSH SYRINGE 10 ML IV SCH ×2 (13:00→22:17)
[2018-02-05] MEDS: XANAX PO PRN (22:13)
[2018-02-05] MEDS: TYLENOL PO PRN (22:16)
[2018-02-06] MEDS: APRESOLINE PO SCH ×3 (05:58→22:32)
[2018-02-06] MEDS: LASIX IV SCH ×2 (05:59→18:49)
--- NOTE | 2018-02-06 08:54 | Progress Note ---
Assessment and Plan Impression * Acute kidney injury on stage III/IV chronic renal failure * Congestive heart failure * Coronary artery disease. Status post bypass surgery * Accelerated hypertension * Paroxysmal atrial fibrillation * Type II DM Recommendations * AM labs are pending * Continue diuresis as needed * Rate control and anticoagulation per cardiology * Avoid nephrotoxins * Replete lytes prn Subjective Date of service: 02/06/18 Principal diagnosis: HF Interval history: Patient reports SOB. Also c/o melena - episode 2 days ago. Denies N/V/ abdominal pain/BRBPR Objective - Vital Signs Vital signs: Vital Signs - 12hr 02/05/18 02/05/18 02/05/18 21:29 22:00 22:11 Temperature 98.2 F Pulse Rate 60 66 66 Respiratory 22 22 Rate Respiratory Rate [Chest] Blood Pressure 167/62 167/62 O2 Sat by Pulse 99 Oximetry 02/05/18 02/05/18 02/05/18 22:12 22:16 23:00 Temperature Pulse Rate 66 Respiratory 22 Rate Respiratory 22 Rate [Chest] Blood Pressure 167/62 O2 Sat by Pulse Oximetry 02/06/18 02/06/18 02/06/18 00:46 03:35 05:58 Temperature 97.7 F 97.7 F Pulse Rate 47 L 52 L 58 L Respiratory 20 18 Rate Respiratory Rate [Chest] Blood Pressure 144/67 156/69 156/69 O2 Sat by Pulse 95 94 Oximetry 02/06/18 07:40 Temperature 98.0 F Pulse Rate 61 Respiratory 20 Rate Respiratory Rate [Chest] Blood Pressure 167/70 O2 Sat by Pulse 93 Oximetry - General Appearance General appearance: well-developed, well-nourished EENT: ATNC Respiratory: Present: Decreased Breath Sounds Cardiology: regular, S1S2 Gastrointestinal: normal, no tenderness, no distended Integumentary: no rash, warm and dry Neurologic: no focal deficit, alert and oriented x3 Musculoskeletal: other (1+ edema) Psychiatric: cooperative - Lab 01/30/18 19:18 02/05/18 06:39 Most recent lab results Calcium 8.6 mg/dL (8.4-10.2) 02/05/18 06:39 Phosphorus 3.60 mg/dL (2.5-4.5) 01/31/18 05:07 Magnesium 2.50 mg/dL (1.7-2.3) H 02/03/18 10:00
[2018-02-06 10:44] LABS: Calcium 8.8 mg/dL (8.4-10.2)
--- NOTE | 2018-02-06 11:54 | Progress Note ---
Assessment and Plan Assessment: Acute diastolic heart failure / pulmonary edema Hypertensive urgency -BP improved CAD s/p CABG in 2010 Paroxysmal atrial fibrillation, anticoagulated with Eliquis-->currently SR DM MAYLIN on CKD HLP PVD Hypokalemia Plan: Clinically improving. Cont present cardiac regimen. Management of diuretics per nephrology. Continue close monitoring of volume status and renal indices. The patient has been seen in conjunction with Dr. Helton who agrees with the assessment and plan of care. Subjective Date of service: 02/06/18 Principal diagnosis: HF Interval history: The patient is resting comfortably in bed. Shortness of breath improved but still short of breath with exertion. Sinus rhythm on the monitor with HR 60s. Objective Last Vital Signs Temp 98.0 F 02/06/18 07:40 Pulse 61 02/06/18 07:40 Resp 20 02/06/18 07:40 BP 167/70 02/06/18 07:40 Pulse Ox 93 02/06/18 07:40 - Physical Examination General: No Apparent Distress HEENT: Positive: PERRL, Normocephaly, Mucus Membranes Moist Neck: Positive: neck supple, trachea midline Cardiac: Positive: Reg Rate and Rhythm, S1/S2 Lungs: Positive: Rales (right base) Neuro: Positive: Grossly Intact Abdomen: Positive: Soft. Negative: Tender Skin: Positive: Clear. Negative: Rash, Wound Musculoskeletal: No Pain, Normal Range of Motion Extremities: Present: +1 Edema (BLE) - Labs and Meds Comprehensive Metabolic Panel 02/06/18 Range/Units 09:56 Sodium 143 D (137-145) mmol/L Potassium 3.4 L (3.6-5.0) mmol/L Chloride 99.6 (98-107) mmol/L Carbon Dioxide 27 (22-30) mmol/L BUN 60 H (9-20) mg/dL Creatinine 3.3 H (0.8-1.5) mg/dL Glucose 119 H (75-100) mg/dL Calcium 8.8 (8.4-10.2) mg/dL - Imaging and Cardiology EKG: report reviewed, image reviewed Echo: report reviewed ( 08/2017 showed EF 55-60%, mod to severe LVH, restrictive diastolic filling pattern. ) Cardiac cath: report reviewed (01/2017 showed Left main patent LAD proximal 30% mid 100% patent MARTINEZ to diagonal with retrograde fill into small LAD. Ramus medium caliber vessel patent feeds to anterior lateral portion of the heart. Circumflex 100% weight OM1 50% RCA 100%. With SVG to PDA patent feeding the PDA and PLV. SVG to obtuse marginal was 100% EF 55% mild inferior apical hypokinesis.) - Telemetry EKG Rhythm: Sinus Rhythm - EKG Sinus rhythms and dysrhythmias: sinus rhythm Chamber hypertrophy or enlargement: left ventricular hypertro
[2018-02-06] MEDS: XANAX PO PRN (13:53)
[2018-02-06] MEDS: PLAVIX PO SCH (13:53)
[2018-02-06] MEDS: COREG PO SCH (13:53)
[2018-02-06] MEDS: ALDACTONE PO SCH (13:54)
[2018-02-06] MEDS: ELIQUIS PO SCH ×2 (13:55→22:33)
[2018-02-06] MEDS: VITAMIN D3 PO SCH (13:55)
[2018-02-06] MEDS: BABY ASPIRIN PO SCH (13:55)
[2018-02-06] MEDS: SODIUM CHLORIDE FLUSH SYRINGE 10 ML IV SCH ×2 (13:56→22:34)
[2018-02-06] MEDS: NORVASC PO SCH (13:57)
[2018-02-06] MEDS: IMDUR PO SCH (14:01)
[2018-02-06] MEDS: HumaLOG SUB-Q SCH ×4 (14:02→22:34)
[2018-02-06 15:10] LABS: Hematocrit 30.3 % (35.5-45.6); Hemoglobin 9.7 gm/dl (11.8-15.2); Mean Corpuscular HGB Conc 32 % (32-34); Mean Corpuscular Volume 80 fl (84-94); Platelet Count 345 K/mm3 (140-440); Red Blood Count 3.79 M/mm3 (3.65-5.03)
[2018-02-06 15:16] LABS: Mean Corpuscular Hemoglobin 26 pg (28-32); Red Cell Distribution Width 20.2 % (13.2-15.2)
--- NOTE | 2018-02-06 16:55 | Progress Note ---
Assessment and Plan Assessment and plan: Acute on chronic diastolic CHF. Less shortness of breath, less leg edema Cont Coreg,Lasix Cardiology following. Acute resp failure due to CHF. On supplemental Oxygen. Became more short of breath yesterday on ambulation O2 sat 87%, may need home oxygen. I discussed with Case management CAD s/p CABG. On Aspirin, Plavix, Coreg, Lipitor, Imdur Diabetes mellitus type 2. Fingerstick qac and HS paroxysmal atrial fib. On Eliquis for anticoagulation Hypertensive urgency. BP improving Hyperlipidemia Acute on Chronic kidney disease. Cr 3.3 today. Nephrology following, stable renal levin . To follow outpatient DVT prophylaxis. On Eliquis Full code status Likely dc home tomorrow if home O2 arranged. History Interval history: Patient became more short of breath, hypoxic on ambulation, O2 sats 87% Less swelling of legs No chest pain Hospitalist Physical - Physical exam Narrative exam: General: Not in acute distress, Obese, HEENT:Normocephalic, atraumatic Neck:supple,no JVD Lungs: Clear to auscultation bilaterally, no crackles, no wheeze Heart:S1 and S2 regular, no murmurs, rubs or gallop Abd: soft, non tender, non distended, normal bowel sounds Ext: Bilateral lower ext edema improving, no clubbing, no cyanosis Neuro: AAO x 3, moves all extremities. - Constitutional Vitals: Temp Pulse Resp BP Pulse Ox 98.2 F 56 L 20 179/71 95 02/06/18 11:43 02/06/18 11:43 02/06/18 11:43 02/06/18 14:01 02/06/18 11:43 General appearance: Present: no acute distress Results - Labs CBC & Chem 7: 02/06/18 15:01 02/06/18 09:56 Labs: Laboratory Last Values WBC 8.8 K/mm3 (4.5-11.0) 02/06/18 15:01 RBC 3.79 M/mm3 (3.65-5.03) 02/06/18 15:01 Hgb 9.7 gm/dl (11.8-15.2) L 02/06/18 15:01 Hct 30.3 % (35.5-45.6) L 02/06/18 15:01 MCV 80 fl (84-94) L 02/06/18 15:01 MCH 26 pg (28-32) L 02/06/18 15:01 MCHC 32 % (32-34) 02/06/18 15:01 RDW 20.2 % (13.2-15.2) H 02/06/18 15:01 Plt Count 345 K/mm3 (140-440) 02/06/18 15:01 Lymph % (Auto) 6.1 % (13.4-35.0) L 01/30/18 19:18 [place] % (Auto) 7.6 % (0.0-7.3) H 01/30/18 19:18 Eos % (Auto) 0.2 % (0.0-4.3) 01/30/18 19:18 Baso % (Auto) 0.5 % (0.0-1.8) 01/30/18 19:18 Lymph # 0.6 K/mm3 (1.2-5.4) L 01/30/18 19:18 [place] # 0.8 K/mm3 (0.0-0.8) 01/30/18 19:18 Eos # 0.0 K/mm3 (0.0-0.4) 01/30/18 19:18 Baso # 0.1 K/mm3 (0.0-0.1) 01/30/18 19:18 Seg Neutrophils % 85.6 % (40.0-70.0) H 01/30/18 19:18 Seg Neutrophils # 8.7 K/mm3 (1.8-7.7) H 01/30/18 19:18 Sodium 143 mmol/L (137-145) D 02/06/18 09:56 Potassium 3.4 mmol/L (3.6-5.0) L 02/06/18 09:56 Chloride 99.6 mmol/L (98-107) 02/06/18 09:56 Carbon Dioxide 27 mmol/L (22-30) 02/06/18 09:56 Anion Gap 20 mmol/L 02/06/18 09:56 BUN 60 mg/dL (9-20) H 02/06/18 09:56 Creatinine 3.3 mg/dL (0.8-1.5) H 02/06/18 09:56 Estimated GFR 23 ml/min 02/06/18 09:56 BUN/Creatinine Ratio 18 % 02/06/18 09:56 Glucose 119 mg/dL (75-100) H 02/06/18 09:56 POC Glucose 193 (70-105) H 02/06/18 15:36 Calcium 8.8 mg/dL (8.4-10.2) 02/06/18 09:56 Phosphorus 3.60 mg/dL (2.5-4.5) 01/31/18 05:07 Magnesium 2.50 mg/dL (1.7-2.3) H 02/03/18 10:00 Troponin T 0.073 ng/mL (0.00-0.029) H 01/30/18 17:52 NT-Pro-B Natriuret Pep 9307 pg/mL (0-900) H 01/30/18 19:24 Triglycerides 70 mg/dL (2-149) 01/30/18 17:52 Cholesterol 149 mg/dL (50-199) 01/30/18 17:52 LDL Cholesterol Direct 71 mg/dL (50-130) 01/30/18 17:52 HDL Cholesterol 77 mg/dL (40-59) H 01/30/18 17:52 Cholesterol/HDL Ratio 1.93 % 01/30/18 17:52
[2018-02-07] MEDS: COREG PO SCH ×3 (00:58→21:40)
[2018-02-07] MEDS: APRESOLINE PO SCH ×3 (05:44→21:39)
[2018-02-07] MEDS: LASIX IV SCH (05:45)
--- NOTE | 2018-02-07 10:15 | Progress Note ---
Assessment and Plan - Patient Problems (1) CKD (chronic kidney disease) Current Visit: No Status: Chronic Qualifiers: Chronic kidney disease stage: stage 4 (severe) Qualified Code(s): N18.4 - Chronic kidney disease, stage 4 (severe) Plan to address problem: Scr-3.3, with eGFR-Stage 4 CKD. Pt says that he is followed by billing typist in [place] for CKD. Mild hunbaituxhx-H-7.4--monitor. Anemia in CKD-pt says that he was referred to harness inspector for Epogen shots. May switch to oral diuretics. Discussed with Dr. Watson-hospitalist. (2) HTN (hypertension) Current Visit: Yes Status: Acute (3) Anemia in CKD (chronic kidney disease) Current Visit: Yes Status: Acute (4) Paroxysmal atrial fibrillation Current Visit: No Status: Acute (5) Diabetes Current Visit: No Status: Chronic Qualifiers: Diabetes mellitus type: type 2 (6) Hx of CABG Current Visit: No Status: Chronic Subjective Date of service: 02/07/18 Principal diagnosis: HF Interval history: pt is alert, oriented, anxious to go home. Denies CP Objective - Vital Signs Vital signs: Vital Signs - 12hr 02/06/18 02/06/18 02/07/18 22:32 23:52 00:58 Temperature 98.4 F Pulse Rate 57 L 57 L 57 L Respiratory 18 Rate Blood Pressure 122/57 141/56 141/56 O2 Sat by Pulse 95 Oximetry 02/07/18 02/07/18 03:43 05:44 Temperature 98.1 F Pulse Rate 62 62 Respiratory 18 Rate Blood Pressure 156/57 156/57 O2 Sat by Pulse 95 Oximetry - General Appearance General appearance: well-developed EENT: mucous membranes moist Neck: no JVD Respiratory: Present: Decreased Breath Sounds Cardiology: regular Gastrointestinal: normoactive bowel sounds Neurologic: alert and oriented x3 Musculoskeletal: other (2+edema) Psychiatric: mood/affect appropriate, cooperative - Lab 02/06/18 15:01 02/07/18 09:50 Most recent lab results Calcium 8.8 mg/dL (8.4-10.2) 02/06/18 09:56 Phosphorus 3.40 mg/dL (2.5-4.5) 02/06/18 19:33 Magnesium 2.30 mg/dL (1.7-2.3) 02/06/18 19:33
--- NOTE | 2018-02-07 12:09 | Progress Note ---
Assessment and Plan Assessment: Acute diastolic heart failure / pulmonary edema - nearing/at euvolemia Hypertensive urgency - BP improved CAD s/p CABG in 2010 Paroxysmal atrial fibrillation, anticoagulated with Eliquis-->currently SR DM MAYLIN on CKD HLP PVD Hypokalemia - improved Plan: Currently stable cardiac status. Pt is nearing/at euvolemia. Will d/c IV diuresis and defer management of PO diuretics to nephrology. Cont all other present cardiac management. Pt may discharge home from cardiology standpoint. Follow up in our [place] office with Dr. Edwards on 02/13/2018 @ 11:45AM. The patient has been seen in conjunction with Dr. eHlton who agrees with the assessment and plan of care. Subjective Date of service: 02/07/18 Principal diagnosis: HF Interval history: pt resting comfortably in chair, no current cardiac complaints. on O2 via NC. Objective Last Vital Signs Temp 98.1 F 02/07/18 03:43 Pulse 62 02/07/18 05:44 Resp 18 02/07/18 03:43 BP 156/57 02/07/18 05:44 Pulse Ox 95 02/07/18 03:43 - Physical Examination General: No Apparent Distress HEENT: Positive: PERRL, Normocephaly, Mucus Membranes Moist Neck: Positive: neck supple, trachea midline Cardiac: Positive: Reg Rate and Rhythm, S1/S2 Lungs: Positive: Decreased Breath Sounds Neuro: Positive: Grossly Intact Abdomen: Positive: Soft. Negative: Tender Skin: Positive: Clear. Negative: Rash, Wound Musculoskeletal: No Pain, Normal Range of Motion Extremities: Present: edema (trace BLE) - Labs and Meds CBC 02/06/18 Range/Units 15:01 WBC 8.8 (4.5-11.0) K/mm3 RBC 3.79 (3.65-5.03) M/mm3 Hgb 9.7 L (11.8-15.2) gm/dl Hct 30.3 L (35.5-45.6) % Plt Count 345 (140-440) K/mm3 Comprehensive Metabolic Panel 02/07/18 Range/Units 09:50 Sodium 136 L (137-145) mmol/L Potassium 4.0 (3.6-5.0) mmol/L Chloride 95.0 L (98-107) mmol/L Carbon Dioxide 23 (22-30) mmol/L BUN 57 H (9-20) mg/dL Creatinine 3.1 H (0.8-1.5) mg/dL Glucose 207 H (75-100) mg/dL Calcium 9.0 (8.4-10.2) mg/dL - Imaging and Cardiology EKG: report reviewed, image reviewed Echo: report reviewed ( 08/2017 showed EF 55-60%, mod to severe LVH, restrictive diastolic filling pattern. ) Cardiac cath: report reviewed (01/2017 showed Left main patent LAD proximal 30% mid 100% patent MARTINEZ to diagonal with retrograde fill into small LAD. Ramus medium caliber vessel patent feeds to anterior lateral portion of the heart. Circumflex 100% weight OM1 50% RCA 100%. With SVG to PDA patent feeding the PDA and PLV. SVG to obtuse marginal was 100% EF 55% mild inferior apical hypokinesis.) - Telemetry EKG Rhythm: Sinus Rhythm - EKG Sinus rhythms and dysrhythmias: sinus rhythm Chamber hypertrophy or enlargement: left ventricular hypertro
[2018-02-07] MEDS: PLAVIX PO SCH (13:58)
[2018-02-07] MEDS: IMDUR PO SCH (13:59)
[2018-02-07] MEDS: VITAMIN D3 PO SCH (13:59)
[2018-02-07] MEDS: TYLENOL PO PRN (13:59)
[2018-02-07] MEDS: BABY ASPIRIN PO SCH (14:01)
[2018-02-07] MEDS: NORVASC PO SCH (14:01)
[2018-02-07] MEDS: ALDACTONE PO SCH (14:02)
[2018-02-07] MEDS: ELIQUIS PO SCH ×2 (14:02→21:40)
[2018-02-07] MEDS: XANAX PO PRN (14:02)
[2018-02-07] MEDS: SODIUM CHLORIDE FLUSH SYRINGE 10 ML IV SCH ×2 (14:04→21:41)
[2018-02-07] MEDS: HumaLOG SUB-Q SCH ×4 (14:04→21:38)
[2018-02-07] MEDS ORDERED: PROCARDIA XL PO SCH (15:00)
--- NOTE | 2018-02-07 15:09 | Progress Note ---
Assessment and Plan /Acute on chronic diastolic CHF. Improving shortness of breath, less leg edema Cont Coreg,Lasix Cardiology following. /Acute resp failure due to CHF. On supplemental Oxygen. Became more short of breath on ambulation O2 sat 87%, Will need home oxygen /CAD s/p CABG. On Aspirin, Plavix, Coreg, Lipitor, Imdur /Diabetes mellitus type 2. Fingerstick qac and HS /paroxysmal atrial fib. On Eliquis for anticoagulation /Hypertensive urgency. BP improving, but still at 180s /Hyperlipidemia, on statin /Acute on Chronic kidney disease. Cr 3.1 today. Nephrology following, stable renal levin . To follow outpatient /Physical debility, states feels weak and his legs feels giving up on ambulation will do PT assessment /DVT prophylaxis. On Eliquis Full code status Likely dc home tomorrow after PT eval and ehen BP improves, home O2 arranged. Hospitalist Physical General: Not in acute distress, Obese, HEENT:Normocephalic, atraumatic Neck:supple,no JVD Lungs: Clear to auscultation bilaterally, no crackles, no wheeze Heart:S1 and S2 regular, no murmurs, rubs or gallop Abd: soft, non tender, non distended, normal bowel sounds Ext: Bilateral lower ext edema improving, no clubbing, no cyanosis Neuro: AAO x 3, moves all extremities. Subjective Date of service: 02/07/18 Principal diagnosis: HF Interval history: Pt seen and examined Sitting in a chair States he gets SOB when gets up from bed, he states that he has been in and out from hospital 6 times in this year SBP still at 180s Objective - Constitutional Vitals: Vital Signs - 12hr 02/07/18 02/07/18 02/07/18 03:43 05:44 13:59 Temperature 98.1 F Pulse Rate 62 62 Respiratory 18 Rate Blood Pressure 156/57 156/57 180/63 O2 Sat by Pulse 95 Oximetry 02/07/18 02/07/18 02/07/18 14:01 14:02 14:14 Temperature Pulse Rate 90 Respiratory Rate Blood Pressure 180/63 180/63 180/63 O2 Sat by Pulse Oximetry - Labs CBC & Chem 7: 02/06/18 15:01 02/08/18 06:14 Labs: Abnormal lab results 06/07/1602/06/18 02/06/18 Range/Units 11:49 15:01 15:36 Hgb 9.7 L (11.8-15.2) gm/dl Hct 30.3 L (35.5-45.6) % MCV 80 L (84-94) fl MCH 26 L (28-32) pg RDW 20.2 H (13.2-15.2) % Sodium (137-145) mmol/L Chloride (98-107) mmol/L BUN (9-20) mg/dL Creatinine (0.8-1.5) mg/dL Glucose (75-100) mg/dL POC Glucose 248 H 193 H (70-105) 02/07/18 02/07/18 Range/Units 09:50 11:40 Hgb (11.8-15.2) gm/dl Hct (35.5-45.6) % MCV (84-94) fl MCH (28-32) pg RDW (13.2-15.2) % Sodium 136 L (137-145) mmol/L Chloride 95.0 L (98-107) mmol/L BUN 57 H (9-20) mg/dL Creatinine 3.1 H (0.8-1.5) mg/dL Glucose 207 H (75-100) mg/dL POC Glucose 191 H (70-105)
[2018-02-08] MEDS: APRESOLINE PO SCH ×2 (05:17→17:47)
[2018-02-08 07:01] LABS: Calcium 8.7 mg/dL (8.4-10.2)
--- NOTE | 2018-02-08 09:51 | Progress Note ---
Assessment and Plan Acute diastolic heart failure / pulmonary edema - nearing/at euvolemia Hypertensive urgency - BP improved CAD s/p CABG in 2011 Paroxysmal atrial fibrillation, anticoagulated with Eliquis-->currently SR DM MAYLIN on CKD HLP PVD Hypokalemia - improved acute respiratory failure , chronic hypoxia requiring home o2 rec: cont current bp meds and add diuretics as per renal and followup in office next week. Subjective Date of service: 02/08/18 Principal diagnosis: HF Interval history: pt is on o2 Objective Vital Signs Temp Pulse Pulse Resp BP BP Pulse Ox 02/08/18 07:48 98.4 F 58 L 18 163/66 97 02/08/18 05:17 58 L 130/60 02/08/18 04:30 97.6 F 53 L 130/60 98 02/07/18 23:52 98.0 F 51 L 18 129/53 99 02/07/18 23:10 58 L 18 97 02/07/18 22:00 97 02/07/18 21:40 58 L 143/70 02/07/18 21:39 58 L 143/70 02/07/18 20:10 60 02/07/18 19:17 97.5 F L 52 L 20 143/70 97 02/07/18 17:13 97.5 F L 49 L 20 122/55 99 02/07/18 14:14 180/63 02/07/18 14:02 180/63 02/07/18 14:01 90 180/63 02/07/18 13:59 180/63 02/07/18 12:22 97.5 F L 52 L 18 161/71 99 02/07/18 10:00 60 20 - Physical Examination General: No Apparent Distress HEENT: Positive: PERRL, Normocephaly, Mucus Membranes Moist Neck: Positive: neck supple, trachea midline Cardiac: Positive: Reg Rate and Rhythm Lungs: Positive: clear to auscultation Neuro: Positive: Grossly Intact Abdomen: Positive: Soft. Negative: Tender Skin: Positive: Clear. Negative: Rash, Wound Musculoskeletal: No Pain, Normal Range of Motion Extremities: Present: lower extr. pulses. Absent: edema (trace BLE) - Labs and Meds Comprehensive Metabolic Panel 02/07/18 02/08/18 Range/Units 09:50 06:14 Sodium 136 L 137 (137-145) mmol/L Potassium 4.0 3.4 L (3.6-5.0) mmol/L Chloride 95.0 L 95.6 L (98-107) mmol/L Carbon Dioxide 23 27 (22-30) mmol/L BUN 57 H 63 H (9-20) mg/dL Creatinine 3.1 H 3.2 H (0.8-1.5) mg/dL Glucose 207 H 111 H (75-100) mg/dL Calcium 9.0 8.7 (8.4-10.2) mg/dL - Imaging and Cardiology EKG: report reviewed, image reviewed Echo: report reviewed ( 08/2017 showed EF 55-60%, mod to severe LVH, restrictive diastolic filling pattern. ) Cardiac cath: report reviewed (01/2017 showed Left main patent LAD proximal 30% mid 100% patent MARTINEZ to diagonal with retrograde fill into small LAD. Ramus medium caliber vessel patent feeds to anterior lateral portion of the heart. Circumflex 100% weight OM1 50% RCA 100%. With SVG to PDA patent feeding the PDA and PLV. SVG to obtuse marginal was 100% EF 55% mild inferior apical hypokinesis.) - Telemetry EKG Rhythm: Sinus Rhythm - EKG Sinus rhythms and dysrhythmias: sinus rhythm Chamber hypertrophy or enlargement: left ventricular hypertro
--- NOTE | 2018-02-08 09:57 | Progress Note ---
Assessment and Plan - Patient Problems (1) CKD (chronic kidney disease) Current Visit: No Status: Chronic Qualifiers: Chronic kidney disease stage: stage 4 (severe) Qualified Code(s): N18.4 - Chronic kidney disease, stage 4 (severe) Plan to address problem: Scr-3.3-3.2, with eGFR-Stage 4 CKD. Pt says that he is followed by can patcher in [place] for CKD ( has appt on Tuesday). Mild [id number]-0.4 --monitor. Anemia in CKD. BP under control.Discussed with - hospitalist (2) HTN (hypertension) Current Visit: Yes Status: Chronic (3) Anemia in CKD (chronic kidney disease) Current Visit: Yes Status: Chronic (4) Paroxysmal atrial fibrillation Current Visit: No Status: Acute (5) Diabetes Current Visit: No Status: Chronic Qualifiers: Diabetes mellitus type: type 2 (6) Hx of CABG Current Visit: No Status: Chronic Subjective Date of service: 02/08/18 Principal diagnosis: HF Interval history: pt is alert, oriented, Denies CP or SOB Objective - Vital Signs Vital signs: Vital Signs - 12hr 02/07/18 02/07/18 02/07/18 22:00 23:10 23:52 Temperature 98.0 F Pulse Rate 51 L Pulse Rate [ 58 L Apical] Respiratory 18 18 Rate Blood Pressure Blood Pressure 129/53 [Left] O2 Sat by Pulse 97 97 99 Oximetry 02/08/18 02/08/18 02/08/18 04:30 05:17 07:48 Temperature 97.6 F 98.4 F Pulse Rate 53 L 58 L 58 L Pulse Rate [ Apical] Respiratory 18 Rate Blood Pressure 130/60 130/60 163/66 Blood Pressure [Left] O2 Sat by Pulse 98 97 Oximetry - General Appearance General appearance: well-developed EENT: mucous membranes moist Neck: no JVD Respiratory: Present: Clear to Ascultation Cardiology: regular Gastrointestinal: normoactive bowel sounds Neurologic: alert and oriented x3 Psychiatric: mood/affect appropriate, cooperative - Lab 02/06/18 15:01 02/08/18 06:14 Most recent lab results Calcium 8.7 mg/dL (8.4-10.2) 02/08/18 06:14 Phosphorus 3.40 mg/dL (2.5-4.5) 02/06/18 19:33 Magnesium 2.30 mg/dL (1.7-2.3) 02/06/18 19:33
[2018-02-08] MEDS ORDERED: NORVASC PO SCH (10:00)
[2018-02-08] MEDS ORDERED: ALDACTONE PO SCH (11:00)
[2018-02-08] MEDS: ELIQUIS PO SCH (11:28)
[2018-02-08] MEDS: PLAVIX PO SCH (11:28)
[2018-02-08] MEDS: IMDUR PO SCH (11:29)
[2018-02-08] MEDS: BABY ASPIRIN PO SCH (11:29)
[2018-02-08] MEDS: HumaLOG SUB-Q SCH ×3 (11:30→17:48)
[2018-02-08] MEDS: SODIUM CHLORIDE FLUSH SYRINGE 10 ML IV SCH (11:30)
[2018-02-08] MEDS: COREG PO SCH (11:31)
[2018-02-08] MEDS: VITAMIN D3 PO SCH (11:31)
--- NOTE | 2018-02-08 16:04 | Discharge Summary ---
Providers - Providers Date of Admission: 01/30/18 19:48 Date of discharge: 02/08/18 Attending physician: KADY RIDDLE 01/31/18 00:14 Consult to Cardiology [CONS] Routine Consulting Provider: DEEPA FAIR Reason For Exam: chf 02/01/18 09:33 Consult to Physician [CONS] Routine Comment: Consulting Provider: KALEB OLIVAREZ Physician Instructions: Reason For Exam: acute on CKD 02/06/18 07:18 Consult to Case Management [CONS] Routine Services Needed at Discharge: Home O2 Notified:: cm Was contact made?: Yes Additional Physician Instructions: 02 at 2lpm stationary concentrator and protable via nasal cannula continuous. 02/08/18 09:48 Physical Therapy Evaluation and Treat [CONS] Routine Comment: Reason For Exam: debility Primary care physician: DIGITAL STRATEGIST SENIOR MANAGER Hospitalization Condition: Stable Hospital course: Discharge Diagnosis and management: /Acute on chronic diastolic CHF. Improving shortness of breath, less leg edema Cont Coreg,Lasix Cardiology following. /Acute resp failure due to CHF. On supplemental Oxygen. Became more short of breath on ambulation O2 sat 87%, Will need home oxygen /CAD s/p CABG. On Aspirin, Plavix, Coreg, Lipitor, Imdur /Diabetes mellitus type 2. Fingerstick qac and HS /paroxysmal atrial fib. On Eliquis for anticoagulation /Hypertensive urgency. BP improving, but still at 180s /Hyperlipidemia, on statin /Acute on Chronic kidney disease. Cr 3.1 today. Nephrology following, stable renal levin . To follow outpatient /Physical debility, states feels weak and his legs feels giving up on ambulation will do PT assessment /DVT prophylaxis. On Eliquis Full code status Likely dc home tomorrow after PT eval and ehen BP improves, home O2 arranged. Hospitalist Physical General: Not in acute distress, Obese, HEENT:Normocephalic, atraumatic Neck:supple,no JVD Lungs: Clear to auscultation bilaterally, no crackles, no wheeze Heart:S1 and S2 regular, no murmurs, rubs or gallop Abd: soft, non tender, non distended, normal bowel sounds Ext: Bilateral lower ext edema improving, no clubbing, no cyanosis Neuro: AAO x 3, moves all extremities. Disposition: [id number]/[place]-06 HOME UNDER HOME [facility] Time spent for discharge: 32 minutes Core Measure Documentation - Palliative Care Palliative Care/ Comfort Measures: Not Applicable - Core Measures Any of the following diagnoses?: none Exam - Constitutional Vitals: Temp Pulse Resp BP Pulse Ox 97.9 F 58 L 18 138/57 97 02/08/18 11:52 02/08/18 11:29 02/08/18 11:52 02/08/18 11:52 02/08/18 10:44 Plan Activity: advance as tolerated Weight Bearing Status: Non-Weight Bearing Diet: diabetic, renal Special Instructions: restrict fluid intake to (1500 ml per day) Durable Medical Equipment Needed Upon Discharge: [employer] Follow up with: EDWARD NATHAN MD [Primary Care Provider] - 7 Days LINCOLN EDWARDS MD [Staff Physician] - 7 Days (Follow up in our [place] office with Dr. Edwards on 02/13/2018 @ 11:45AM. ) Prescriptions: AtorvaSTATin [Lipitor] 40 mg PO QHS #30 tablet ALPRAZolam [Xanax TAB] 0.25 mg PO BID PRN #10 tab PRN Reason: Anxiety amLODIPine [Norvasc] 10 mg PO QDAY #30 tablet Apixaban [Eliquis] 5 mg PO Q12HR #60 tablet Aspirin [Aspirin BABY CHEW TAB] 81 mg PO QDAY #30 tab.chew Carvedilol [Coreg] 25 mg PO Q12HR #60 tablet Cholecalciferol Vit D3 [Vitamin D3] 1,000 unit PO QDAY #30 tablet Clopidogrel [Plavix] 75 mg PO QDAY #30 tablet hydrALAZINE [Apresoline TAB] 100 mg PO Q8HR 30 Days #90 tablet ISOSORBIDE MONOnitrate [Imdur ER] 120 mg PO QDAY #30 tablet Spironolactone [Aldactone] 50 mg PO QDAY #30 tablet Torsemide [Demadex] 20 mg PO DAILY #30 tablet
[2018-02-08 17:24] VITALS: BP 135/54
== END 2018-02-08 18:15 | disposition home health service (06) | DRG 291 ==
LOC: ED 17:19 → 4A 19:48
PROVIDERS: ADMIT Internal Medicine; ATTEND Internal Medicine
DX: I13.0 Hypertensive heart and chronic kidney disease with heart failure and stage 1 through stage 4 chronic kidney disease, or unspecified chronic kidney disease (principal); J96.01 Acute respiratory failure with hypoxia; I50.33 Acute on chronic diastolic (congestive) heart failure; N17.9 Acute kidney failure, unspecified; N18.4 Chronic kidney disease, stage 4 (severe); I48.0 Paroxysmal atrial fibrillation; Z79.4 Long term (current) use of insulin; Z79.82 Long term (current) use of aspirin; Z86.73 Personal history of transient ischemic attack (TIA), and cerebral infarction without residual deficits; Z95.1 Presence of aortocoronary bypass graft; I25.2 Old myocardial infarction; I25.10 Atherosclerotic heart disease of native coronary artery without angina pectoris; F41.9 Anxiety disorder, unspecified; Z82.49 Family history of ischemic heart disease and other diseases of the circulatory system; E11.22 Type 2 diabetes mellitus with diabetic chronic kidney disease; E11.51 Type 2 diabetes mellitus with diabetic peripheral angiopathy without gangrene; E78.5 Hyperlipidemia, unspecified; I16.0 Hypertensive urgency; E87.6 Hypokalemia; D63.1 Anemia in chronic kidney disease
CPT/HCPCS: 36415; 71045; 80048; 80061; 82962; 83735; 83880; 84100; 84484; 85025; 85027; 93005; 93010; 94760; 96374; A9270-GY; J0360; J1815; J1940